=== PATIENT | male | born 1945 ===

== ENCOUNTER 2024-03-16 03:52 | Outpatient (RCR) | payer MEDICARE, OTHER, SELFPAY ==
[2024-03-16 10:06] LABS: HCT 36.5 % (40.0-50.0); HGB 12.1 g/dL (13.5-17.5); MCH 32.5 pg (27.0-33.0); MCHC 33.2 % (32.0-36.0); MCV 98 fL (80-95); MPV 9.2 fL (8.0-11.0); Platelet Count 115 10^3/uL (130-400); RBC 3.72 10^6/uL (4.36-5.78); RDW 14.2 % (11.8-14.1); RDW-SD 50.5 fL; WBC 4.58 10^3/uL (4.4-10.8)
[2024-03-16 10:28] LABS: ALT 22 U/L (16-63); AST 14 U/L (15-37); Albumin 3.7 g/dL (3.4-5.0); Alkaline Phosphatase 85 U/L (46-116); Anion Gap 4.3 mmol/L (3-11); BUN 18 mg/dL (7-18); Bilirubin, Total 0.5 mg/dL (0.2-1.0); CO2 29.7 mmol/L (21.0-32.0); CREATININE 1.2 mg/dL (0.70-1.30); Calcium 9.7 mg/dL (8.5-10.1); Chloride 107 mmol/L (98-107); Estimated GFR 62.67 (mL/min/1.73m2); Glucose 97 mg/dL (74-106); Potassium 4.9 mmol/L (3.5-5.1); Sodium 141 mmol/L (136-145); Total Protein 7.4 g/dL (6.4-8.2)
[2024-03-16 10:48] LABS: Absolute Lymphocyte Count 2.29 10^3/uL (1.2-3.4); Absolute Monocyte Count 0.09 10^3/uL (0.1-0.8); Absolute Neutrophil Count 2.15 10^3/uL (1.2-6.7); Atypical Lymphocytes % 22; Bands % 1
[2024-03-16 10:49] LABS: Metamyelocytes % 1
[2024-03-16 10:51] LABS: Diff Comment Manual Differential; RBC Morphology Normal
[2024-03-18 10:42] LABS: PSA, Ultrasensitive 0.94 ng/mL (<= 6.5)
[2024-03-19 15:15] LABS: Testosterone, Total <7.0 ng/dL (240-950)
== END 2024-03-30 23:59 | disposition home or self-care (01) ==
LOC: INF 03:52
PROVIDERS: Internal Medicine; Visit Provider Internal Medicine Medical Oncology
DX: C61 Malignant neoplasm of prostate (principal); C77.2 Secondary and unspecified malignant neoplasm of intra-abdominal lymph nodes
CPT/HCPCS: 36415; 80053; 84153; 84403; 85025

== ENCOUNTER 2024-04-05 13:19 | Outpatient (RCR) | payer MEDICARE, OTHER, SELFPAY ==
[2024-04-05 13:43] LABS: Abs Immature Grans 0.03 10^3/uL (0.0-0.06); Absolute Basophil Count 0.03 10^3/uL (0.0-0.2); Absolute Monocyte Count 0.49 10^3/uL (0.1-0.8); Absolute Neutrophil Count 2.78 10^3/uL (1.2-6.7); Basophils % 0.6 %; HCT 36.5 % (40.0-50.0); HGB 12.1 g/dL (13.5-17.5); Immature Grans % 0.6 %; Lymphocytes % 32.5 %; MCH 33.1 pg (27.0-33.0); MCHC 33.2 % (32.0-36.0); MCV 100 fL (80-95); MPV 8.9 fL (8.0-11.0); Monocytes % 9.9 %; Neutrophils % 56.4 %; Platelet Count 128 10^3/uL (130-400); RBC 3.66 10^6/uL (4.36-5.78); RDW 14.5 % (11.8-14.1); RDW-SD 52.7 fL; WBC 4.93 10^3/uL (4.4-10.8)
[2024-04-05 14:04] LABS: ALT 21 U/L (16-63); AST 15 U/L (15-37); Albumin 3.9 g/dL (3.4-5.0); Alkaline Phosphatase 77 U/L (46-116); Anion Gap 9.2 mmol/L (3-11); BUN 21 mg/dL (7-18); Bilirubin, Total 0.9 mg/dL (0.2-1.0); CO2 26.8 mmol/L (21.0-32.0); CREATININE 1.3 mg/dL (0.70-1.30); Calcium 9.6 mg/dL (8.5-10.1); Chloride 105 mmol/L (98-107); Estimated GFR 56.93 (mL/min/1.73m2); Glucose 100 mg/dL (74-106); Potassium 4.2 mmol/L (3.5-5.1); Sodium 141 mmol/L (136-145); Total Protein 7.4 g/dL (6.4-8.2)
[2024-04-07 11:13] LABS: PSA, Ultrasensitive 0.46 ng/mL (<= 6.5)
[2024-04-09 00:58] LABS: Testosterone, Total 8.3 ng/dL (240-950)
== END 2024-04-30 23:59 | disposition home or self-care (01) ==
LOC: INF 13:19
PROVIDERS: Visit Provider Internal Medicine Medical Oncology
DX: C61 Malignant neoplasm of prostate (principal); C77.2 Secondary and unspecified malignant neoplasm of intra-abdominal lymph nodes
CPT/HCPCS: 36415; 80053; 84153; 84403; 85025

== ENCOUNTER 2024-04-23 02:46 | Outpatient (CLI) | payer MEDICARE, OTHER, SELFPAY ==
[2024-04-23 09:11] LABS: HCT 36.1 % (40.0-50.0); HGB 11.8 g/dL (13.5-17.5); MCH 33.1 pg (27.0-33.0); MCHC 32.7 % (32.0-36.0); MCV 101 fL (80-95); MPV 8.8 fL (8.0-11.0); Platelet Count 108 10^3/uL (130-400); RBC 3.57 10^6/uL (4.36-5.78); RDW-SD 51.8 fL; WBC 3.31 10^3/uL (4.4-10.8)
[2024-04-23 09:30] LABS: Absolute Eosinophil Count 0.03 10^3/uL (0.0-0.7); Absolute Lymphocyte Count 1.59 10^3/uL (1.2-3.4); Absolute Monocyte Count 0.07 10^3/uL (0.1-0.8); Absolute Neutrophil Count 1.62 10^3/uL (1.2-6.7); Atypical Lymphocytes % 9 %; Bands % 1 %; Diff Comment Manual Differential; RBC Morphology Normal
[2024-04-23 09:34] LABS: ALT 23 U/L (16-63); AST 15 U/L (15-37); Albumin 3.8 g/dL (3.4-5.0); Alkaline Phosphatase 79 U/L (46-116); Anion Gap 9.2 mmol/L (3-11); BUN 22 mg/dL (7-18); Bilirubin, Total 0.7 mg/dL (0.2-1.0); CO2 26.8 mmol/L (21.0-32.0); CREATININE 1.4 mg/dL (0.70-1.30); Calcium 9.4 mg/dL (8.5-10.1); Chloride 105 mmol/L (98-107); Estimated GFR 52.09 (mL/min/1.73m2); Glucose 103 mg/dL (74-106); Potassium 4.2 mmol/L (3.5-5.1); Sodium 141 mmol/L (136-145); Total Protein 7.6 g/dL (6.4-8.2)
[2024-04-28 14:50] LABS: Testosterone, Total <7.0 ng/dL (240-950)
[2024-04-28 16:29] LABS: PSA, Ultrasensitive 0.19 ng/mL (<= 6.5)
== END 2024-04-23 02:47 | disposition home or self-care (01) ==
PROVIDERS: Visit Provider Internal Medicine
DX: C61 Malignant neoplasm of prostate (principal); C77.2 Secondary and unspecified malignant neoplasm of intra-abdominal lymph nodes
CPT/HCPCS: 36415; 80053; 84153; 84403; 85025

== ENCOUNTER 2024-05-17 09:17 | Outpatient (CLI) | payer MEDICARE, OTHER, SELFPAY ==
[2024-05-17 14:15] LABS: Abs Immature Grans 0.03 10^3/uL (0.0-0.06); HCT 30.5 % (40.0-50.0); HGB 9.8 g/dL (13.5-17.5); MCHC 32.1 % (32.0-36.0); MCV 100 fL (80-95); MPV 8.4 fL (8.0-11.0); Platelet Count 191 10^3/uL (130-400); RBC 3.06 10^6/uL (4.36-5.78); RDW 13.2 % (11.8-14.1); RDW-SD 48.5 fL; WBC 3.58 10^3/uL (4.4-10.8)
[2024-05-17 14:37] LABS: ALT 32 U/L (16-63); AST 22 U/L (15-37); Albumin 2.7 g/dL (3.4-5.0); Alkaline Phosphatase 131 U/L (46-116); Anion Gap 7.6 mmol/L (3-11); BUN 14 mg/dL (7-18); Bilirubin, Total 0.5 mg/dL (0.2-1.0); CO2 28.4 mmol/L (21.0-32.0); CREATININE 1.3 mg/dL (0.70-1.30); Chloride 102 mmol/L (98-107); Estimated GFR 56.93 (mL/min/1.73m2); Glucose 119 mg/dL (74-106); Sodium 138 mmol/L (136-145); Total Protein 6.8 g/dL (6.4-8.2)
[2024-05-17 14:40] LABS: Absolute Eosinophil Count 0.21 10^3/uL (0.0-0.7); Absolute Lymphocyte Count 0.72 10^3/uL (1.2-3.4); Absolute Monocyte Count 0.07 10^3/uL (0.1-0.8); Absolute Neutrophil Count 2.54 10^3/uL (1.2-6.7); Atypical Lymphocytes % 1 %; Bands % 1 %; Metamyelocytes % 1
[2024-05-17 14:41] LABS: Diff Comment Manual Differential; RBC Morphology Normal
--- OUTSIDE RECORDS SUMMARY | 2024-05-18 09:18 | XMS_ITS | Continuity of Care Document ---
Author Name Unknown Organization [facility] Address [address] [place] [address] Care Team Providers Care Mba Internship Name Role Phone Aurelia Venegas Primary Care Physician Encounter [facility] Date(s): 10/08/23 - 10/08/[address] [address] Discharge Disposition: Home or Self Care Attending Physician: Homer Rodríguez MD Admitting Physician: Homer Rodríguez MD Referring Physician: Homer Rodríguez MD Allergies, Adverse Reactions, Alerts No Known Medication Allergies Assessment and Plan Future Appointments Future Scheduled Tests Laboratory* PSA Diagnostic 08/02/24 * PSA Diagnostic 08/01/23 Immunizations Given and Recorded Vaccine Date Status Refusal Reason SARS-CoV-2 (COVID-19) mRNA-1273 vaccine 09/24/21 R ecorded SARS-CoV-2 (COVID-19) mRNA-1273 vaccine 02/14/21 R ecorded SARS-CoV-2 (COVID-19) mRNA-1273 vaccine 01/17/21 R ecorded influenza, unspecified formulation 08/29/21 Record ed influenza, unspecified formulation 08/23/20 Record ed influenza virus vaccine, live 09/06/19 Recorded pneumococcal 13-valent conjugate vaccine 10/16/17 Recorded pneumococcal 13-valent conjugate vaccine 04/20/15 Recorded influenza virus vaccine, inactivated 09/27/16 Larry rded influenza virus vaccine, inactivated 09/29/15 Larry rded influenza virus vaccine, inactivated 09/23/14 Larry rded influenza virus vaccine, inactivated 10/21/13 Larry rded influenza virus vaccine, inactivated 10/15/12 Larry rded influenza virus vaccine, inactivated 10/10/11 Larry rded influenza virus vaccine, inactivated 09/03/10 Larry rded influenza virus vaccine, inactivated 11/16/09 Larry rded influenza virus vaccine, inactivated 09/28/08 Larry rded influenza virus vaccine, inactivated 09/22/07 Larry rded influenza virus vaccine, inactivated 11/12/06 Larry rded pneumococcal 23-polyvalent vaccine 10/15/12 Record ed pneumococcal 23-polyvalent vaccine 12/01/99 Record ed zoster vaccine live 04/15/12 Recorded tetanus/diphth/pertuss (Tdap) adult/adol 04/03/11 Recorded Novel Lqxjfhscr-[id number], all formulation 12/29/09 Recorded Novel Vemrtlfuk-[id number], all formulation 1 12/29/09 Recorded tetanus-diphth toxoids (Td) adult/adol 12/01/04 Re corded Not Given Vaccine Date Status Refusal Reason Td(adult) unspecified formulation 2 05/10/22 Not G iven Patient Refuses 1Result Comment: Duplicated 2Result Comment: Patient Declined Last Modified on 09-13-2021 Medications Bactrim DS 800 mg-160 mg oral tablet 1 tab, Oral, every 12 hr, # 56 tab, 0 Refill(s), Pharmacy: [facility] #58, 167, cm, 04/23/22 13:16:00 EDT, Height/Length Dosing, 68, kg, 04/23/22 13:16:00 EDT, Weight Dosing Start Date: 08/10/23 Stop Date: 09/07/23 Status: Ordered clobetasol 0.05% topical cream 1 graeme, Topical, BID, apply sparingly to affected areas twice daily, # 15 g, 3 Refill(s), Pharmacy: [facility] #58, 167, cm, 04/23/22 13:16:00 EDT, Height/Length Dosing, 68, kg, 04/23/22 13:16:00 EDT, Weight Dosing Start Date: 11/18/22 Stop Date: 03/18/23 Status: Ordered ibuprofen 200 mg oral tablet mg = tab, Oral, PRN as needed for pain, 0 Refill(s) Start Date: 05/07/22 Status: Ordered latanoprost 0.005% ophthalmic solution 1 drops, Eye-Both, every night at bedtime Start Date: 04/25/22 Status: Ordered levoFLOXacin 500 mg oral tablet 500 mg = 1 tab, Oral, every 24 hr, # 14 tab, 0 Refill(s), Pharmacy: [facility] #58, 167, cm, 04/23/22 13:16:00 EDT, Height/Length Dosing, 68, kg, 04/23/22 13:16:00 EDT, Weight Dosing Start Date: 09/12/23 Stop Date: 09/26/23 Status: Ordered omeprazole 40 mg oral delayed release capsule 1 cap, Oral, Daily, # 90 cap, 3 Refill(s), Pharmacy: [facility] #58, 167, cm, 04/23/22 13:16:00 EDT, Height/Length Dosing, 68, kg, 04/23/22 13:16:00 EDT, Weight Dosing Start Date: 03/18/23 Status: Ordered tamsulosin 0.4 mg oral capsule 0.4 mg = 1 cap, Oral, Daily, after a meal, # 90 cap, 3 Refill(s), Pharmacy: [facility] #58, 167, cm, 04/23/22 13:16:00 EDT, Height/Length Dosing, 68, kg, 04/23/22 13:16:00 EDT, Weight Dosing Start Date: 04/24/22 Stop Date: 04/19/23 Status: Ordered tamsulosin 0.4 mg oral capsule 0.4 mg = 1 cap, Oral, Daily, # 90 cap, 3 Refill(s), Pharmacy: [facility] #58, 167, cm, 04/23/22 13:16:00 EDT, Height/Length Dosing, 68, kg, 04/23/22 13:16:00 EDT, Weight Dosing Start Date: 04/14/23 Stop Date: 04/08/24 Status: Ordered Problem List Condition Confirmation Course Effective Dates Status Health Status Informant Vences's esophagus Confirmed Active Cataract 1 Confirmed 04/20/20 Active Rotator cuff shoulder syndrome and allied disorders (Bilateral) Confirmed Active Gastroesophageal reflux disease Confirmed Active Glaucoma Confirmed Active Hyperlipidemia Confirmed Active Mild persistent asthma Confirmed Active Overweight Confirmed Active Pain of right shoulder joint Confirmed Active Prostate nodule Confirmed Active Psychophysiologic insomnia Confirmed Active 1right Procedures Procedure Date Related Diagnosis Body Site Status Colonoscopy 1 06/07/20 Completed Inguinal Hernia Repair right 11/30/02 Completed Right Knee Surgery 11/30/02 Comple meliza 1colon polyps x4 12/24/16 Results Laboratory List Name Date PSA Diagnostic 10/08/23 Most recent to oldest [Reference Range]: 1 PSA Total Diagnostic [0.00-4.00 ng/mL] 3 6.47 ng/mL 1 *HI* (10/08/23 8:35 AM) 1Interpretive Data: The testing method is an heterogeneous enzyme Immunoassay manufactured by [employer] and performed on the SafeAwake system. Values obtained with different assay methods or kits may be different and cannot be used interchangeably. Test results cannot be interpreted as absolute evidence for the presence or absence of malignant disease. Social History Social History Type Response Tobacco Former tobacco user Tobacco Use:. Quit over 50 years ago per day. Sex Male Patient Care team information Care Team Personnel Name: Aurelia Venegas MD Position: Physician Member Role: Informed Provider Address: Address: [place] [facility] [place], [place] [address] Care Team Related Persons Name: RILEY HAYES
--- OUTSIDE RECORDS SUMMARY | 2024-05-18 09:18 | XMS_ITS | Continuity of Care Document ---
Author Name Unknown Organization [facility] Address [address] [place] [address] Care Team Providers Care Commercial Title Examiner Name Role Phone Aurelia Venegas Primary Care Physician [phone] Encounter [facility] Date(s): 12/31/23 - 12/31/23 [facility] [address] [place] [address] Discharge Disposition: Home Allergies, Adverse Reactions, Alerts No Known Medication [...] Recorded tetanus/diphth/pertuss (Tdap) adult/adol 04/03/11 Recorded Novel Vuvynpmoo-U3N3-61, all formulation 12/29/09 Recorded Novel Wpfaweauu-J3U0-74, all formulation 1 12/29/09 Recorded tetanus-diphth toxoids (Td) adult/adol 12/01/04 Re corded Not Given Vaccine Date Status Refusal Reason Td(adult) unspecified formulation 2 05/10/22 Not G isrealen Patient Refuses 1Result Comment: Duplicated 2Result Comment: Patient Declined Last Modified on 09-13-2021 Medications bicalutamide 50 mg oral tablet 50 mg = 1 tab, Oral, every 24 hr, # 30 tab, 1 Refill(s), Pharmacy: [facility], 170, cm, 12/11/23 8:34:00 EST, Height, 66.85, kg, 12/23/23 10:14:00 EST, Weight Dosing Start Date: 12/25/23 Stop Date: 02/23/24 Status: Ordered clobetasol 0.05% topical cream 1 graeme, Topical, BID, apply sparingly to affected areas twice daily, # 15 g, 3 Refill(s), Pharmacy: [facility], 167, cm, 04/23/22 13:16:00 EDT, Height/Length Dosing, 68, kg, 04/23/22 13:16:00 EDT, Weight Dosing Start Date: 11/18/22 Stop Date: 03/18/23 Status: Ordered ibuprofen 200 mg oral tablet mg = tab, Oral, PRN as needed for pain, 0 Refill(s) Start Date: 05/07/22 Status: Ordered latanoprost 0.005% ophthalmic solution 1 drops, Eye-Both, every night at bedtime Start Date: 04/25/22 Status: Ordered omeprazole 40 mg oral delayed release capsule 1 cap, Oral, Daily, # 90 cap, 3 Refill(s), [facility]acy: [facility], 167, cm, 04/23/22 13:16:00 EDT, Height/Length Dosing, 68, kg, 04/23/22 13:16:00 EDT, Weight Dosing Start Date: 03/18/23 Status: Ordered tamsulosin 0.4 mg oral capsule 0.4 mg = 1 cap, Oral, Daily, after a meal, # 90 cap, 3 Refill(s), [facility]acy: [facility], 167, cm, 04/23/22 13:16:00 EDT, Height/Length Dosing, 68, kg, 04/23/22 13:16:00 EDT, Weight Dosing Start Date: 04/24/22 Stop Date: 04/19/23 Status: Ordered tamsulosin 0.4 mg oral capsule 0.4 mg = 1 cap, Oral, Daily, # 90 cap, 3 Refill(s), [facility]acy: [facility], 167, cm, 04/23/22 13:16:00 EDT, Height/Length [...] 11/30/02 Comple meliza 1colon polyps x4 12/24/16 Social History Social History Type Response Tobacco Former tobacco user Tobacco Use:. Quit over 50 years ago per day. Sex Male Patient Care team information Care Team Personnel Name: Aurelia Venegas MD Position: Physician Member Role: Informed Provider Address: Address: [address] [place] [address] [address] [place], [place] [address] Care Team Related Persons Name: RILEY HAYES Address: Home [address] [place] [address], [phone]
--- OUTSIDE RECORDS SUMMARY | 2024-05-18 09:18 | XMS_ITS | Continuity of Care Document ---
Author Name Unknown Organization [facility] Address [address] [place] [address] Care Team Providers Care Shoulder Boner Name Role Phone Aurelia Venegas Primary Care Physician [phone] Encounter [facility] Date(s): 12/08/23 - 12/08/[address] [address] Discharge Disposition: Home or Self Care Attending Physician: Efe Altamirano MD Admitting Physician: Efe Altamirano MD Referring Physician: Efe Altamirano MD Allergies, Adverse Reactions, Alerts No Known Medication Allergies Assessment and Plan Future Appointments Future Scheduled Tests Laboratory* PSA Diagnostic 08/02/24 * PSA Diagnostic 08/01/23 * PSA Diagnostic 11/03/23 * Creatinine 11/03/23 Immunizations Given and Recorded Vaccine Date Status [...] Larry rded influenza virus vaccine, inactivated 10/21/13 Lrary rded influenza virus vaccine, inactivated 10/15/12 Larry [...] Recorded tetanus/diphth/pertuss (Tdap) adult/adol 04/03/11 Recorded Novel Hilwjrppn-R3O5-25, all formulation 12/29/09 Recorded Novel Jejelczbn-[id number], all formulation 1 12/29/09 Recorded tetanus-diphth toxoids (Td) adult/adol 12/01/04 Re corded Not Given Vaccine Date Status Refusal Reason Td(adult) unspecified formulation 2 05/10/22 Not G iven Patient Refuses 1Result Comment: Duplicated 2Result Comment: Patient Declined Last Modified on 09-13-2021 Medications Bactrim DS 800 mg-160 mg oral tablet 1 tab, Oral, every 12 hr, # 56 tab, 0 Refill(s), Pharmacy: [facility] #58, 167, cm, 04/23/22 13:16:00 EDT, Height/Length Dosing, 68, kg, 04/23/22 13:16:00 EDT, Weight Dosing Start Date: 08/10/23 Stop Date: 09/07/23 Status: Ordered clobetasol 0.05% topical cream 1 graeme, Topical, BID, apply sparingly to affected areas twice daily, # 15 g, 3 Refill(s), Pharmacy: [facility] #58, 167, cm, 04/23/22 13:16:00 EDT, Height/Length [...] hr, # 14 tab, 0 Refill(s), Pharmacy: [facility] #58, 167, cm, 04/23/22 13:16:00 EDT, Height/Length Dosing, 68, kg, 04/23/22 13:16:00 EDT, Weight Dosing Start Date: 09/12/23 Stop Date: 09/26/23 Status: Ordered omeprazole 40 mg oral delayed release capsule 1 cap, Oral, Daily, # 90 cap, 3 Refill(s), Pharmacy: [facility] #58, 167, cm, 04/23/22 13:16:00 EDT, Height/Length Dosing, 68, kg, 04/23/22 13:16:00 EDT, Weight Dosing Start Date: 03/18/23 Status: Ordered ondansetron 4 mg oral tablet, disintegrating 4 mg = 1 tab, Oral, TID, PRN nausea/vomiting, X 5 days, # 15 tab, 0 Refill(s), 12/12/23 11:59:00 PM DIRECTOR OF RELIGIOUS ACTIVITIES, Pharmacy: [facility] #58, 170, cm, 12/07/23 21:21:00 EST, Height, 63.7, kg, 12/07/23 21:27:00 EST, Weight Dosing Start Date: 12/08/23 Stop Date: 12/13/23 Status: Ordered tamsulosin 0.4 mg oral capsule 0.4 mg = 1 cap, Oral, Daily, after a meal, # 90 cap, 3 Refill(s), Pharmacy: [facility] #58, 167, cm, 04/23/22 13:16:00 EDT, Height/Length Dosing, 68, kg, 04/23/22 13:16:00 EDT, Weight Dosing Start Date: 04/24/22 Stop Date: 04/19/23 Status: Ordered tamsulosin 0.4 mg oral capsule 0.4 mg = 1 cap, Oral, Daily, # 90 cap, 3 Refill(s), Pharmacy: [facility] #58, 167, cm, 04/23/22 13:16:00 EDT, Height/Length [...] Physician Member Role: Informed Provider Address: Address: [place] [address] [place] Care Team Related Persons Name: RILEY HAYES Address: Home [address] [place] [address], [phone]
--- OUTSIDE RECORDS SUMMARY | 2024-05-18 09:18 | XMS_ITS | Continuity of Care Document ---
Author Name Unknown Organization [facility] Address [address] [place] [address] Care Team Providers Care Reserve Officer Name Role Phone Aurelia Venegas Primary Care Physician Encounter [facility] Date(s): 12/24/23 - 12/24/[address] [address] Discharge Disposition: Home or Self Care Attending Physician: Aurelia Venegas MD Admitting Physician: Aurelia Venegas MD Referring Physician: Aurelia Venegas MD Allergies, Adverse Reactions, Alerts No Known Medication Allergies Assessment and Plan Future Appointments Diagnostic Tests Pending * Clostridium Difficile 12/24/23 Future Scheduled Tests Laboratory* PSA Diagnostic 08/02/24 [...] Recorded tetanus/diphth/pertuss (Tdap) adult/adol 04/03/11 Recorded Novel Yveosytjk-[id number], all formulation 12/29/09 Recorded Novel Uuocwwevf-F6J1-40, all formulation 1 12/29/09 Recorded tetanus-diphth toxoids (Td) adult/adol 12/01/04 Re corded Not Given Vaccine Date Status Refusal Reason Td(adult) unspecified formulation 2 05/10/22 Not G sixto Patient Refuses 1Result Comment: Duplicated 2Result Comment: Patient Declined Last Modified on 09-13-2021 Medications bicalutamide 50 mg oral tablet 50 mg = 1 tab, Oral, every 24 hr, # 30 tab, 1 Refill(s), Pharmacy: [facility] #58, 170, cm, 12/11/23 8:34:00 EST, Height, 66.85, kg, 12/23/23 10:14:00 EST, Weight Dosing Start Date: 12/25/23 Stop Date: 02/23/24 Status: Ordered clobetasol 0.05% topical cream 1 graeme, Topical, BID, apply sparingly to affected areas twice daily, # 15 g, 3 Refill(s), Pharmacy: [facility] #58, 167, cm, 04/23/22 13:16:00 EDT, Height/Length [...] Daily, # 90 cap, 3 Refill(s), Pharmacy: [facility] #58, 167, cm, 04/23/22 13:16:00 EDT, Height/Length Dosing, 68, kg, 04/23/22 13:16:00 EDT, Weight Dosing Start Date: 03/18/23 Status: Ordered tamsulosin 0.4 mg oral capsule 0.4 mg = 1 cap, Oral, Daily, after a meal, # 90 cap, 3 Refill(s), Pharmacy: [facility] #58, 167, cm, 04/23/22 13:16:00 EDT, Height/Length Dosing, 68, kg, 04/23/22 13:16:00 EDT, Weight Dosing Start Date: 04/24/22 Stop Date: 04/19/23 Status: Ordered tamsulosin 0.4 mg oral capsule 0.4 mg = 1 cap, Oral, Daily, # 90 cap, 3 Refill(s), Pharmacy: [facility] #[facility], 167, cm, 04/23/22 13:16:00 EDT, Height/Length [...] x4 12/24/16 Results Laboratory List Name Date Fecal Bacterial Pathogens by PCR [facility] 12/02 03/24 Occult Blood Diagnostic, Feces 12/24/23 Most recent to oldest [Reference Range]: 1 Occult Bld Stl I Negative (12/24/23 11:25 AM) Occult Bld Stl ll Negative (12/24/23 11:25 AM) Occult Bld Stl lll Negative (12/24/23 11:25 AM) Salmonella PCR [facility] [Negative] Negative *NA* (12/24/23 11:25 AM) Shigella/Enteroinvasive E. coli [facility] [Neg ative] Negative *NA* (12/24/23 11:25 AM) HN LAB CAMPYLOBACTER PCR [facility] [Negative] Negative *NA* (12/24/23 11:25 AM) Shiga Toxin PCR [facility] [Negative] Negative 1 *NA* (12/24/23 11:25 AM) 1Result Comment: Test [place] [address] Social History Social History Type Response Tobacco Former tobacco user Tobacco Use:. Quit over 50 years ago per day. Sex Male Patient Care team information Care Team Personnel Name: Aurelia Venegas MD Position: Physician Member Role: Informed Provider Address: Address: [place] [address]- Care Team Related Persons Name: RILEY HAYES Address: Home [address] [place] [address], [phone]
--- OUTSIDE RECORDS SUMMARY | 2024-05-18 09:18 | XMS_ITS | Continuity of Care Document ---
Author Name Unknown Organization [facility] Address [address] [place] [address] Care Team Providers Care Roll Mechanic Name Role Phone Aurelia Venegas Primary Care Physician [phone] Encounter [facility] Date(s): 01/13/24 - 01/13/24 [facility] [address] [place] [address] Discharge Disposition: Home Allergies, Adverse Reactions, Alerts [...] Recorded tetanus/diphth/pertuss (Tdap) adult/adol 04/03/11 Recorded Novel Sgjyhpkfe-[id number], all formulation 12/29/09 Recorded Novel Vfqdlrrnh-D1O3-47, all formulation 1 12/29/09 Recorded tetanus-diphth toxoids (Td) adult/adol 12/01/04 Re corded Not Given Vaccine Date Status Refusal Reason Td(adult) unspecified formulation 2 05/10/22 Not G iven Patient Refuses 1Result Comment: Duplicated 2Result Comment: Patient Declined Last Modified on 09-13-2021 Medications bicalutamide 50 mg oral tablet 50 mg = 1 tab, Oral, every 24 hr, # 30 tab, 1 Refill(s), Pharmacy: [facility] #58, 170, cm, 12/11/23 8:34:00 EST, Height, 66.85, kg, 12/23/23 10:14:00 EST, Weight Dosing Start Date: 12/25/23 Stop Date: 02/23/24 Status: Ordered clobetasol 0.05% topical cream 1 graeme, Topical, BID, apply sparingly to affected areas twice daily, # 15 g, 3 Refill(s), Pharmacy: [facility] #58, 167, cm, 04/23/22 13:16:00 EDT, Height/Length [...] Daily, # 90 cap, 3 Refill(s), Pharmacy: [facility] #58, 167, cm, 04/23/22 13:16:00 EDT, Height/Length Dosing, 68, kg, 04/23/22 13:16:00 EDT, Weight Dosing Start Date: 03/18/23 Status: Ordered tamsulosin 0.4 mg oral capsule 0.4 mg = 1 cap, Oral, Daily, after a meal, # 90 cap, 3 Refill(s), Pharmacy: [facility] #58, 167, cm, 04/23/22 13:16:00 EDT, Height/Length Dosing, 68, kg, 04/23/22 13:16:00 EDT, Weight Dosing Start Date: 04/24/22 Stop Date: 04/19/23 Status: Ordered tamsulosin 0.4 mg oral capsule 0.4 mg = 1 cap, Oral, Daily, # 90 cap, 3 Refill(s), Pharmacy: [facility] #58, 167, cm, 04/23/22 13:16:00 EDT, Height/Length [...] Physician Member Role: Informed Provider Address: Address: [address] [place] [address] [place], [place] [address] Care Team Related Persons Name: RILEY HAYES Address: Home [address] [place] [address], [phone]
--- OUTSIDE RECORDS SUMMARY | 2024-05-18 09:19 | XMS_ITS | Continuity of Care Document ---
Author Name Unknown Organization [facility] Address [address] [place] [address] Care Team Providers Care Medical Office Technology Instructor Name Role Phone Aurelia Venegas Primary Care Physician Encounter [facility] Date(s): 03/18/23 - 03/18/[address] [address] Discharge Disposition: Home or Self Care Attending Physician: Aurelia Venegas MD Admitting Physician: Aurelia Venegas MD Referring Physician: Aurelia Venegas MD Allergies, Adverse Reactions, Alerts No Known Medication Allergies Assessment and Plan Future Appointments Future Scheduled Tests Laboratory* PSA Diagnostic 08/01/23 Immunizations Given and Recorded [...] 10/15/12 Larry rded influenza virus vaccine, inactivated 11/10/11 Larry rded influenza virus vaccine, inactivated 09/03/10 Larry rded influenza virus vaccine, inactivated 11/16/09 Larry rded influenza virus vaccine, inactivated 09/28/08 Larry rded influenza virus vaccine, inactivated 09/22/07 Larry rded influenza virus vaccine, inactivated 11/12/06 Larry rded pneumococcal 23-polyvalent vaccine 10/15/12 Record ed pneumococcal 23-polyvalent vaccine 12/01/99 Record ed zoster vaccine live 04/15/12 Recorded tetanus/diphth/pertuss (Tdap) adult/adol 04/03/11 Recorded Novel Smyxcuqfm-B2V5-80, all formulation 12/29/09 Recorded Novel Jxhxpkxnx-P4Z5-49, all formulation 1 12/29/09 Recorded tetanus-diphth toxoids (Td) adult/adol 12/01/04 Re corded Not Given Vaccine Date Status Refusal Reason Td(adult) unspecified formulation 2 05/10/22 Not G iven Patient Refuses 1Result Comment: Duplicated 2Result Comment: Patient Declined Last Modified on 09-13-2021 Medications clobetasol 0.05% topical cream 1 graeme, Topical, BID, apply sparingly to affected areas twice daily, # 15 g, 3 Refill(s), Pharmacy: [facility] #58, 167, cm, 04/23/22 13:16:00 EDT, Height/Length [...] Daily, # 90 cap, 3 Refill(s), Pharmacy: [facility] #58, 167, cm, 04/23/22 13:16:00 EDT, Height/Length Dosing, 68, kg, 04/23/22 13:16:00 EDT, Weight Dosing Start Date: 03/18/23 Status: Ordered tamsulosin 0.4 mg oral capsule 0.4 mg = 1 cap, Oral, Daily, after a meal, # 90 cap, 3 Refill(s), Pharmacy: [facility] #58, 167, cm, 04/23/22 13:16:00 EDT, Height/Length Dosing, 68, kg, 04/23/22 13:16:00 EDT, Weight Dosing Start Date: 04/24/22 Stop Date: 04/19/23 Status: Ordered Problem List Condition Confirmation Course [...] x4 12/24/16 Results Laboratory List Name Date .Manual Differential (NCTY) 03/18/23 CBC w/ Diff 03/18/23 Comprehensive Metabolic Panel (CMP) 03/18 Most recent to oldest [Reference Range]: 1 WBC [5.0-10.0 x10^3/mcL] 5.1 x10^3/mcL (03/18/23 10:19 AM) RBC [4.6-6.0 x10^6/mcL] 4.4 x10^6/mcL *LOW* (03/18/23 10:19 AM) Segs Man [40-75 %] 43 % (03/18/23 10:19 AM) Lymph Man [20-50 %] 50 % (03/18/23 10:19 AM) [place] Man 3 % *NA* (03/18/23 10:19 AM) Eos Man 2 % *NA* (03/18/23 10:19 AM) BUN [7-18 mg/dL] 19 mg/dL *HI* (03/18/23 10:19 AM) Glucose Level [74-106 mg/dL] 101 mg/dL (03/18/23 10:19 AM) [place] Man 1 % *NA* (03/18/23 10:19 AM) Potassium Level [3.5-5.1 mmol/L] 4.4 mmo l/L (03/18/23 10: AM) MCV [80.0-96.0] 98.2 *HI* (03/18/23 AM) RBC Morph Normal (03/18/23 AM) AST [15-37 unit/L] 16 unit/L (03/18/23 AM) ALT [16-63 unit/L] 21 unit/L (03/18/23 AM) MCHC [31.0-35.0 g/dL] 33.6 g/dL (03/18/23 AM) Sodium Level [136-145 mmol/L] 140 mmol/L (03/18/23: AM) Hct [41.0-51.0 %] 43.4 % (03/18/23 AM) Calcium Level [8.5-10.1 mg/dL] 9.8 mg/dL (03/18/23 AM) Albumin Level [3.4-5.0 g/dL] 3.8 g/dL (03/18/23 AM) Protein Total [6.4-8.2 g/dL] 7.5 g/dL (03/18/23: AM) MCH [26.0-32.0 pg] 33.0 pg *HI* (03/18/23 AM) Bilirubin Total [0.2-1.0 mg/dL] 0.7 mg/d L (03/18/23 AM) Hgb [14.0-18.0 g/dL] 14.6 g/dL (03/18/23: AM) Alk Phos [46-146 unit/L] 71 unit/L (03/18/23: AM) Band Man [0-5 %] 1 % (03/18/23 AM) Platelets [130-450 x10^3/mcL] 112 x10^3/ mcL *LOW* (03/18/23 AM) CO2 [21-32 mmol/L] 29 mmol/L (03/18/23 10: AM) eGFR Non-AA [>=60] 59 *LOW* (4/18/23 10:19 AM) eGFR AA [>=60] 59 *LOW* (03/18/23 10:19 AM) Chloride Level [98-107 mmol/L] 103 mmol/ L (03/18/23 10:19 AM) RDW-CV [11.5-17.0 %] 13.6 % (03/18/23 10:19 AM) Abs Neut Man 2.2 x10^3/mcL *NA* (03/18/23 10:19 AM) Creatinine Level [0.70-1.30 mg/dL] 1.27 mg/dL (03/18/23 10:19 AM) Baso Man [0-1 %] 0 % (03/18/23 10:19 AM) Social History Social History Type Response Tobacco Former tobacco user Tobacco Use:. Quit over 50 years ago per day. Sex Male Patient Care team information Care Team Personnel Name: Aurelia Venegas MD Position: Physician Member Role: Primary Care Physician Address: Address: [place] [address]- [place] Care Team Related Persons Name: RILEY HAYES
--- OUTSIDE RECORDS SUMMARY | 2024-05-18 09:19 | XMS_ITS | Patient Health Record ---
Author Name Unknown Organization [facility] Address [address] [phone] Support Name Relationship Address Phone DEJA HAYES Guarantor Unknown [phone] ALLERGIES No Known Allergies REASON FOR REFERRAL No Information MEDICATIONS Medication SIG (Take, Route, Frequency, Duration) Notes Start Date End Date Status Escitalopram Oxalate 10 MG 1 tablet Oral ly Once a day Active Warfarin Sodium 5 MG 1 tablet Orally Onc e a day for 30 day(s) Active Erin-Ledy - TAKE ONE TABLET BY M OUTH EVERY DAY for 90 Active Flomax 0.4 MG 1 capsule Orally Onc e a day for 30 day(s) Active amLODIPine Besylate 10 MG 1 tablet Orall y Once a day for 30 day(s) Active Acidophilus - as directed Orally QD Active Lantus SoloStar 100 UNIT/ML 15 UNITS Sub cutaneous BID Active Acetaminophen 500 MG 1 capsule as needed Orally every 6 hrs Active QUEtiapine Fumarate 25 MG 1/2 tablet at bedtime Orally Once a day Active Pantoprazole Sodium 40 MG 1 tablet Orall y Once a day for 30 day(s) Active HumaLOG KwikPen 100 UNIT/ML 8 UNITS Subcutaneous TID Active Gabapentin 100 MG 1 capsule Orally BID Active hydrALAZINE HCl 100 MG 1 tablet with mariah d Orally Three times a day for 90 days Active lamoTRIgine 100 MG 1 tablet Orally BID Active Ipratropium-Albuterol 20-100 MCG/ACT 1 puff as needed Inhalation every 6 hrs Active Bumetanide 2 MG as directed Orally e very 24 hrs Active ALPRAZolam 1 MG 1 tablet Orally Twic e a day Active Cyclobenzaprine HCl 5 MG 1 tablet at bed time as needed Orally Once a day for 30 day(s) Active Cholecalciferol 50 MCG (2000 UT) 1 capsule Orally Once a day for 30 day(s) Active Cetirizine HCl 10 MG 1 tablet Orally Onc e a day for 30 day(s) Active Potassium Chloride ER 10 MEQ TAKE ONE TA BLET BY MOUTH EVERY DAY WITH FOOD for 90 Active PROBLEMS Problem Type ICD Code Onset Dates Problem Status W/U Status Risk SNOMED Code Notes Problem Essential (primary) hypertension (I10) Active confirmed Essential hypertension (31201379) Problem 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) Active confirmed Anemia in chron ic kidney disease (208568136) Problem Iron deficiency anemia, unspecified (D50.9) Active confirmed Iron deficiency anemia (03986356) Problem Type 2 diabetes mellitus without complications (E11.9) Active confirmed Type I I diabetes mellitus without complication (698356675) Problem Hyperlipidemia, unspecified (E78.5) Active confirmed Hyperlip idemia (20379635) Problem Non-ST elevation (NSTEMI) myocardial infarction (I21.4) Active confirmed Acute non -ST segment elevation myocardial infarction (088602324) Problem Secondary hyperparathyroidism of renal origin (N25.81) Active confirmed Secondary hyperparathyroidism of renal origin (36009608) Problem Chronic kidney disease, stage 3 unspecified (N18.30) Active confirmed Chronic kidney disease stage 3 (disorder) (280246296) PLAN OF TREATMENT No Information Insurance Providers Payer Name Payer Address Payer Phone Subscriber Number Group Number Insured Name Patient Relationship to Insured Coverage Start Date Coverage End Date Abhijit Valentin [phone] FÁTIMA Juarez [id number] DEJA HAYES Self - patient is the insured MEDICAL (GENERAL) HISTORY Medical History History ICD Code Anemia, unspecified D64.9 Iron deficiency anemia, unspecified D50. 9 Secondary hyperparathyroidism of renal o rigin N25.81 Hyperlipidemia, unspecified E78.5 Non-ST elevation (NSTEMI) myocardial inf arction I21.4 Essential (primary) hypertension I10 Type 2 diabetes mellitus without complic ations E11.9 Chronic kidney disease, unspecified N18. 9 Surgical History Surgery Date(Month/Year)
--- OUTSIDE RECORDS SUMMARY | 2024-05-18 09:19 | XMS_ITS | Continuity of Care Document ---
Author Name Unknown Organization [facility] Address [address] [place] [address] Care Team Providers Care Sour Bleaching Pleater Name Role Phone Aurelia Venegas Primary Care Physician Encounter [facility] Date(s): 02/03/24 - 02/03/[address] [address] Discharge Disposition: Home or Self Care Attending Physician: Mick Brenner MD Admitting Physician: Mick Brenner MD Referring Physician: Mick Brenner MD Allergies, Adverse Reactions, Alerts No Known [...] Recorded tetanus/diphth/pertuss (Tdap) adult/adol 04/03/11 Recorded Novel Tgbpjeypj-N3A4-82, all formulation 12/29/09 Recorded Novel Hkzsmhtur-I0J7-96, all formulation 1 12/29/09 Recorded tetanus-diphth toxoids (Td) adult/adol 12/01/04 Re corded Not Given Vaccine Date Status Refusal Reason Td(adult) unspecified formulation 2 05/10/22 Not G iven Patient Refuses 1Result Comment: Duplicated 2Result Comment: Patient Declined Last Modified on 09-13-2021 Medications bicalutamide 50 mg oral tablet 50 mg = 1 tab, Oral, every 24 hr, # 30 tab, 1 Refill(s), Pharmacy: [facility] #58, 170, cm, 12/11/23 8:34:00 EST, Height, 66.85, kg, 12/23/23 10:14:00 EST, Weight Dosing Start Date: 12/25/23 Stop Date: 02/23/24 Status: Ordered clobetasol 0.05% topical cream 1 graeme, Topical, BID, apply sparingly to affected areas twice daily, # 15 g, 3 Refill(s), Pharmacy: [facility] #58, 167, cm, 04/23/22 13:16:00 EDT, Height/Length [...] Daily, # 90 cap, 3 Refill(s), Pharmacy: [facility] #58, 167, cm, 04/23/22 13:16:00 EDT, Height/Length Dosing, 68, kg, 04/23/22 13:16:00 EDT, Weight Dosing Start Date: 03/18/23 Status: Ordered tamsulosin 0.4 mg oral capsule 0.4 mg = 1 cap, Oral, Daily, after a meal, # 90 cap, 3 Refill(s), Pharmacy: [facility] #58, 167, cm, 04/23/22 13:16:00 EDT, Height/Length Dosing, 68, kg, 04/23/22 13:16:00 EDT, Weight Dosing Start Date: 04/24/22 Stop Date: 04/19/23 Status: Ordered tamsulosin 0.4 mg oral capsule 0.4 mg = 1 cap, Oral, Daily, # 90 cap, 3 Refill(s), Pharmacy: [facility] #58, 167, cm, 04/23/22 13:16:00 EDT, Height/Length [...] Active Glaucoma Confirmed Active Hyperlipidemia Confirmed Active 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 Quit over 50 years ago per day. Sex Male Patient Care team information Care Team Personnel Name: Aurelia Venegas MD Position: Physician Member Role: Informed Provider Address: Address: [address] [place] [address] [address] [place], [place] [address] Care Team Related Persons Name: RILEY HAYES Address: Home [address] [place] [address], [phone]
--- OUTSIDE RECORDS SUMMARY | 2024-05-18 09:19 | XMS_ITS | Continuity of Care Document ---
Author Name Unknown Organization [facility] Address [address] [place] [address] Care Team Providers Care Warp Knitter Helper Name Role Phone SampsonAurelia Primary Care Physician Encounter [facility] Date(s): 11/17/23 - 01/09/24 [facility] [address] [place] [address] Discharge Disposition: Home or Self Care Attending Physician: Leif Arita DO Admitting Physician: Leif Arita DO Referring Physician: Leif Arita DO Allergies, Adverse Reactions, Alerts No Known Medication Allergies Assessment and Plan Extracted from: Title:Clinical Document Author:Efe Altamirano Ra, MD Date:12/09/23 I spoke with the patient thi s morning. He is feeling markedly better. He had an ultrasound yesterday of his gallbladder, he tried calling his primary care doctor to get the results but could not get through. Ultrasound reports signs of cholecystitis. Patient is feeling markedly better. Nevertheless I did speak with [facility] surgical and they will get him in with Dr. Arita tomorrow at 11. I did also speak with Dr. Rodríguez who will be seeing him for prostate issues this week. The patient to return to the ER immediately if he develops a fever and worsening pain. Future Appointments Future Scheduled Tests Laboratory* PSA Diagnostic 08/02/24 * PSA Diagnostic 08/01/23 Functional Status 12/02/23 Living Situation Home independently ADLs Independent Recent Travel History No recent travel Immunizations Given and Recorded Vaccine Date Status [...] Recorded tetanus/diphth/pertuss (Tdap) adult/adol 04/03/11 Recorded Novel Pooanwhyw-R8N7-76, all formulation 12/29/09 Recorded Novel Fjwmligul-T5U1-34, all formulation 1 12/29/09 Recorded tetanus-diphth toxoids (Td) adult/adol 12/01/04 Re corded Not Given Vaccine Date Status Refusal Reason Td(adult) unspecified formulation 2 05/10/22 Not G iven Patient Refuses 1Result Comment: Duplicated 2Result Comment: Patient Declined Last Modified on 09-13-2021 Medications bicalutamide 50 mg oral tablet 50 mg = 1 tab, Oral, every 24 hr, # 30 tab, 1 Refill(s), Pharmacy: [facility] #58, 170, cm, 12/11/23 8:34:00 EST, Height, 66.85, kg, 12/23/23 10:14:00 EST, Weight Dosing Start Date: 12/25/23 Stop Date: 02/23/24 Status: Ordered clobetasol 0.05% topical cream 1 graeme, Topical, BID, apply sparingly to affected areas twice daily, # 15 g, 3 Refill(s), Pharmacy: [facility] #58, 167, cm, 04/23/22 13:16:00 EDT, Height/Length [...] Daily, # 90 cap, 3 Refill(s), Pharmacy: [facility] #58, 167, cm, 04/23/22 13:16:00 EDT, Height/Length Dosing, 68, kg, 04/23/22 13:16:00 EDT, Weight Dosing Start Date: 03/18/23 Status: Ordered tamsulosin 0.4 mg oral capsule 0.4 mg = 1 cap, Oral, Daily, after a meal, # 90 cap, 3 Refill(s), Pharmacy: [facility] #58, 167, cm, 04/23/22 13:16:00 EDT, Height/Length Dosing, 68, kg, 04/23/22 13:16:00 EDT, Weight Dosing Start Date: 04/24/22 Stop Date: 04/19/23 Status: Ordered tamsulosin 0.4 mg oral capsule 0.4 mg = 1 cap, Oral, Daily, # 90 cap, 3 Refill(s), Pharmacy: [facility] #58, 167, cm, 04/23/22 13:16:00 EDT, Height/Length [...] 50 years ago per day. Sex Male Physician Emergency department Note * Efe Altamirano MD: PERFORM Event Display: ED Note Physician Authored Date: [id number] I spoke with the patient this morning. He is feeling markedly better. He had an ultrasound yesterday of his gallbladder, he tried calling his primary care doctor to get the results but could not get through. Ultrasound reports signs of cholecystitis. Patient is feeling markedly better. NeverthelessI did speak with [facility] surgical and they will get him in with Dr. Arita tomorrow at 11. I did also speak with Dr. Rodríguez who will be seeing him for prostate issues this week. The patient to return to the ER immediately if he develops a fever and worsening pain. Electronically Signed on 12/09/23 11:08 AM Efe Altamirano MD Patient Care team information Care Team Personnel Name: Aurelia Venegas MD Position: Physician Member Role: Informed Provider Address: Address: [address] [place] [address] [place] [address]- Care Team Related Persons Name: RILEY HAYES Address: Home [address] [place] [address], [phone]
--- OUTSIDE RECORDS SUMMARY | 2024-05-18 09:19 | XMS_ITS | Continuity of Care Document ---
Author Name Unknown Organization [facility] Address [address] [place] [address] Care Team Providers Care Machine Etcher Name Role Phone Aurelia Venegas Primary Care Physician Encounter [facility] Date(s): 12/23/23 - 12/23/[address] [address] Discharge Disposition: Home or Self Care Attending [...] Recorded tetanus/diphth/pertuss (Tdap) adult/adol 04/03/11 Recorded Novel Fmnqayfuj-M7P5-97, all formulation 12/29/09 Recorded Novel Iurhkabcf-B2N2-74, all formulation 1 12/29/09 Recorded tetanus-diphth toxoids (Td) adult/adol 12/01/04 Re corded Not Given Vaccine Date Status Refusal Reason Td(adult) unspecified formulation 2 05/10/22 Not G iven Patient Refuses 1Result Comment: Duplicated 2Result Comment: Patient Declined Last Modified on 09-13-2021 Medications clobetasol 0.05% topical cream 1 graeme, Topical, BID, apply sparingly to affected areas twice daily, # 15 g, 3 Refill(s), Pharmacy: [facility] #58, 167, cm, 04/23/22 13:16:00 EDT, Height/Length [...] Daily, # 90 cap, 3 Refill(s), Pharmacy: [facility] #58, 167, cm, 04/23/22 13:16:00 EDT, Height/Length Dosing, 68, kg, 04/23/22 13:16:00 EDT, Weight Dosing Start Date: 03/18/23 Status: Ordered tamsulosin 0.4 mg oral capsule 0.4 mg = 1 cap, Oral, Daily, after a meal, # 90 cap, 3 Refill(s), Pharmacy: [facility] #58, 167, cm, 04/23/22 13:16:00 EDT, Height/Length Dosing, 68, kg, 04/23/22 13:16:00 EDT, Weight Dosing Start Date: 04/24/22 Stop Date: 04/19/23 Status: Ordered tamsulosin 0.4 mg oral capsule 0.4 mg = 1 cap, Oral, Daily, # 90 cap, 3 Refill(s), Pharmacy: [facility] #58, 167, cm, 04/23/22 13:16:00 EDT, Height/Length [...] Laboratory List Name Date .Manual Differential ([facility]) 12/23/23 Amylase Level 12/23/23 CBC w/ Diff 12/23/23 Comprehensive Metabolic Panel (CMP) 12/23 GGT 12/23/23 Lipase Level 12/23/23 PSA Diagnostic 12/23/23 Most recent to oldest [Reference Range]: 1 WBC [5.0-10.0 x10^3/mcL] 5.1 x10^3/mcL (12/23/23 10:57 AM) RBC [4.6-6.0 x10^6/mcL] 4.2 x10^6/mcL *LOW* (12/23/23 10:57 AM) Segs Man [40-75 %] 58 % (12/23/23 10:57 AM) Lymph Man [20-50 %] 28 % (12/23/23 10:57 AM) Mcduffie Man [2-15 %] 2 % (12/23/23 10:57 AM) Eos Man [1-6 %] 1 % (12/23/23 10:57 AM) BUN [7-18 mg/dL] 17 mg/dL (12/23/23 10:57 AM) Glucose Level [74-106 mg/dL] 101 mg/dL (12/23/23 10:57 AM) Lymph, Atyp Man 9 % *NA* (12/23/23 10:57 AM) Potassium Level [3.5-5.1 mmol/L] 3.7 mmo l/L (12/23/23 10:57 AM) MCV [80.0-96.0 fL] 96.9 fL *HI* (12/23/23 10:57 AM) RBC Morph Normal (12/23/23 10:57 AM) AST [15-37 unit/L] 14 unit/L *LOW* (12/23/23 10:57 AM) Amylase Level [25-115 unit/L] 47 unit/L (12/23/23 10:57 AM) ALT [16-63 unit/L] 30 unit/L (12/23/23 10:57 AM) MCHC [31.0-35.0 g/dL] 33.6 g/dL (12/23/23 10:57 AM) Sodium Level [136-145 mmol/L] 140 mmol/L (12/23/23 10:57 AM) Hct [41.0-51.0 %] 40.5 % *LOW* (12/23/23 10:57 AM) Lipase Level [16-77 unit/L] 43 unit/L 1 (12/23/23 10:57 AM) Calcium Level [8.5-10.1 mg/dL] 9.5 mg/dL (12/23/23 10:57 AM) Albumin Level [3.4-5.0 g/dL] 3.2 g/dL *LOW* (12/23/23 10:57 AM) Protein Total [6.4-8.2 g/dL] 7.7 g/dL (12/23/23 10:57 AM) MCH [26.0-32.0 pg] 32.5 pg *HI* (12/23/23 10:57 AM) Bilirubin Total [0.2-1.0 mg/dL] 0.8 mg/d L (12/23/23 10:57 AM) Hgb [14.0-18.0 g/dL] 13.6 g/dL *LOW* (12/23/23 10:57 AM) Alk Phos [46-146 unit/L] 122 unit/L (12/23/23 10:57 AM) Band Man [0-5 %] 0 % (12/23/23 10:57 AM) Platelets [130-450 x10^3/mcL] 241 x10^3/ mcL (12/23/23 10:57 AM) CO2 [21-32 mmol/L] 28 mmol/L (12/23/23 10:57 AM) PSA Total Diagnostic [0.00-4.00 ng/mL] 3 2.15 ng/mL 2 *HI* (12/23/23 10:57 AM) GGT [15-85 unit/L] 52 unit/L (12/23/23 10:57 AM) eGFR Non-AA [>=60] 59 *LOW* (12/23/23 10:57 AM) eGFR AA [>=60] 59 *LOW* (12/23/23 10:57 AM) Chloride Level [98-107 mmol/L] 102 mmol/ L (12/23/23 10:57 AM) RDW-CV [11.5-14.5 %] 12.5 % (12/23/23 10:57 AM) Slide Review Man Diff (12/23/23 10:57 AM) Abs Neut Man 3.0 x10^3/mcL *NA* (12/23/23 10:57 AM) Immature Cells 2 *NA* (12/23/23 10:57 AM) Creatinine Level [0.70-1.30 mg/dL] 1.27 mg/dL (12/23/23 10:57 AM) Baso Man [0-1 %] 0 % (12/23/23 10:57 AM) 1Interpretive Data: Effective 09/19/22, [facility] has switched to a revised Lipase test.Note new ReferenceRange. 2Interpretive Data: The testing method is an heterogeneous enzyme Immunoassay manufactured by [employer] and performed on the [employer] system. Values obtained with different assay methods [...] Physician Member Role: Informed Provider Address: Address: [place] [address]- [place] Care Team Related Persons Name: RILEY HAYES Address: Home [address] [place] [address], [phone]
--- OUTSIDE RECORDS SUMMARY | 2024-05-18 09:19 | XMS_ITS | Continuity of Care Document ---
Author Name Unknown Organization [facility] Address [address] [place] [address] Care Team Providers Care Orange Grower Name Role Phone Aurelia Venegas Primary Care Physician [phone] Encounter [facility] Date(s): 01/21/24 - 01/21/[address] [address] Discharge Disposition: Home or Self Care Attending [...] Recorded tetanus/diphth/pertuss (Tdap) adult/adol 04/03/11 Recorded Novel Qqrpdrlra-N5E6-27, all formulation 12/29/09 Recorded Novel Odfxnxrmh-R7L5-79, all formulation 1 12/29/09 Recorded tetanus-diphth toxoids (Td) adult/adol 12/01/04 Re corded Not Given Vaccine Date Status Refusal Reason Td(adult) unspecified formulation 2 05/10/22 Not G iven Patient Refuses 1Result Comment: Duplicated 2Result Comment: Patient Declined Last Modified on 09-13-2021 Medications bicalutamide 50 mg oral tablet 50 mg = 1 tab, Oral, every 24 hr, # 30 tab, 1 Refill(s), Pharmacy: [facility] #58, 170, cm, 12/11/23 8:34:00 EST, Height, 66.85, kg, 12/23/23 10:14:00 EST, Weight Dosing Start Date: 12/25/23 Stop Date: 02/23/24 Status: Ordered clobetasol 0.05% topical cream 1 graeme, Topical, BID, apply sparingly to affected areas twice daily, # 15 g, 3 Refill(s), Pharmacy: [facility] #58, 167, cm, 04/23/22 13:16:00 EDT, Height/Length [...] Daily, # 90 cap, 3 Refill(s), Pharmacy: [facility] #58, 167, cm, 04/23/22 13:16:00 EDT, Height/Length Dosing, 68, kg, 04/23/22 13:16:00 EDT, Weight Dosing Start Date: 03/18/23 Status: Ordered tamsulosin 0.4 mg oral capsule 0.4 mg = 1 cap, Oral, Daily, after a meal, # 90 cap, 3 Refill(s), Pharmacy: [facility] #58, 167, cm, 04/23/22 13:16:00 EDT, Height/Length Dosing, 68, kg, 04/23/22 13:16:00 EDT, Weight Dosing Start Date: 04/24/22 Stop Date: 04/19/23 Status: Ordered tamsulosin 0.4 mg oral capsule 0.4 mg = 1 cap, Oral, Daily, # 90 cap, 3 Refill(s), Pharmacy: [facility] #58, 167, cm, 04/23/22 13:16:00 EDT, Height/Length [...] Comple meliza 1colon polyps x4 12/24/16 Results Orders for Microbiology Reports Name Date Urine Culture 01/21/24 Microbiology Reports TEST:Urine Culture STATUS:Order in Progress BODY SITE: SOURCE:Urine, Catheterized COLLECTED DATE/TIME:01/21/24 10:57 AM PRELIMINARY REPORT >100,000 cfu/ml Citrobacter freundii Susceptibility to follow. Social History Social History Type Response Tobacco Former tobacco user Tobacco Use:. Quit over 50 years ago per day. Sex Male Patient Care team information Care Team Personnel Name: Aurelia Venegas MD Position: Physician Member Role: Informed Provider Address: Address: [address] [place] [address] [place] [address]- Care Team Related Persons Name: HAYES RILEY Address: Home [address] [place] [address], [phone]
--- OUTSIDE RECORDS SUMMARY | 2024-05-18 09:19 | XMS_ITS | Continuity of Care Document ---
Author Name Unknown Organization [facility] Address [address] [place] [address] Care Team Providers Care [employer] System Freight Car Cleaner Name Role Phone Aurelia Venegas Primary Care Physician [phone] Encounter [place] Date(s): 09/10/23 - 09/10/[address] [address] Discharge Disposition: Home or Self Care Attending [...] Recorded tetanus/diphth/pertuss (Tdap) adult/adol 04/03/11 Recorded Novel Tfkljpnji-L3Y3-08, all formulation 12/29/09 Recorded Novel Elargyecz-F8L4-53, all formulation 1 12/29/09 Recorded tetanus-diphth toxoids (Td) adult/adol 12/01/04 Re corded Not Given Vaccine Date Status Refusal Reason Td(adult) unspecified formulation 2 05/10/22 Not G iven Patient Refuses 1Result Comment: Duplicated 2Result Comment: Patient Declined Last Modified on 09-13-2021 Medications Bactrim DS 800 mg-160 mg oral tablet 1 tab, Oral, every 12 hr, # 56 tab, 0 Refill(s), Pharmacy: [facility] #58, 167, cm, 04/23/22 13:16:00 EDT, Height/Length Dosing, 68, kg, 04/23/22 13:16:00 EDT, Weight Dosing Start Date: 08/10/23 Stop Date: 09/07/23 Status: Ordered clobetasol 0.05% topical cream 1 graeme, Topical, BID, apply sparingly to affected areas twice daily, # 15 g, 3 Refill(s), Pharmacy: [facility] #58, 167, cm, 04/23/22 13:16:00 EDT, Height/Length [...] Daily, # 90 cap, 3 Refill(s), Pharmacy: [facility] #58, 167, cm, 04/23/22 13:16:00 EDT, Height/Length Dosing, 68, kg, 04/23/22 13:16:00 EDT, Weight Dosing Start Date: 03/18/23 Status: Ordered tamsulosin 0.4 mg oral capsule 0.4 mg = 1 cap, Oral, Daily, after a meal, # 90 cap, 3 Refill(s), Pharmacy: [facility] #58, 167, cm, 04/23/22 13:16:00 EDT, Height/Length Dosing, 68, kg, 04/23/22 13:16:00 EDT, Weight Dosing Start Date: 04/24/22 Stop Date: 04/19/23 Status: Ordered tamsulosin 0.4 mg oral capsule 0.4 mg = 1 cap, Oral, Daily, # 90 cap, 3 Refill(s), Pharmacy: [facility] #58, 167, cm, 04/23/22 13:16:00 EDT, Height/Length [...] Results Laboratory List Name Date PSA Diagnostic 09/10/23 Most recent to oldest [Reference Range]: 1 PSA Total Diagnostic [0.00-4.00 ng/mL] 3 7.88 ng/mL 1 *HI* (09/10/23 9:13 AM) 1Interpretive Data: The testing method is an heterogeneous enzyme Immunoassay manufactured by [employer] and performed on the [employer] system. Values obtained with different assay methods [...] Physician Member Role: Informed Provider Address: Address: [place] [address]- Care Team Related Persons Name: RILEY HAYES
--- OUTSIDE RECORDS SUMMARY | 2024-05-18 09:19 | XMS_ITS | Continuity of Care Document ---
Author Name Unknown Organization [facility] Address [address] [place] [address] Care Team Providers Care Manager Books Name Role Phone Aurelia Venegas Primary Care Physician Encounter [facility] Date(s): 09/16/22 - 09/16/[address] [id number] Discharge Disposition: Home or Self Care Attending Physician: Aurelia Venegas MD Admitting Physician: Aurelia Venegas MD Allergies, Adverse Reactions, [...] 10/10/11 Larry rded influenza virus vaccine, inactivated 10/4/10 Larry rded influenza virus vaccine, inactivated 11/16/09 Larry rded influenza virus vaccine, inactivated 09/28/08 Larry rded influenza virus vaccine, inactivated 09/22/07 Larry rded influenza virus vaccine, inactivated 11/12/06 Larry rded pneumococcal 23-polyvalent vaccine 10/15/12 Record ed pneumococcal 23-polyvalent vaccine 12/01/99 Record ed zoster vaccine live 04/15/12 Recorded tetanus/diphth/pertuss (Tdap) adult/adol 04/03/11 Recorded Novel [id number], all formulation 12/29/09 Recorded Novel [id number], all formulation 1 12/29/09 Recorded tetanus-diphth toxoids (Td) adult/adol 12/01/04 Re corded Not Given Vaccine Date Status Refusal Reason Td(adult) unspecified formulation 2 05/10/22 Not Kaleb henson Patient Refuses 1Result Comment: Duplicated 2Result Comment: Patient Declined Last Modified on 09-13-2021 Medications ibuprofen 200 mg oral tablet mg = tab, Oral, PRN as needed for pain, 0 Refill(s) Start Date: 05/07/22 Status: Ordered latanoprost 0.005% ophthalmic solution 1 drops, Eye-Both, every night at bedtime Start Date: 04/25/22 Status: Ordered omeprazole 40 mg oral delayed release capsule 40 mg = 1 cap, Oral, Daily, # 90 cap, 1 Refill(s), Pharmacy: [id number], 167, cm, 04/23/22 13:16:00 EDT, Height/Length Dosing, 68, kg, 04/23/22 13:16:00 EDT, Weight Dosing Start Date: 06/26/22 Status: Ordered tamsulosin 0.4 mg oral capsule 0.4 mg = 1 cap, Oral, Daily, after a meal, # 90 cap, 3 Refill(s), Pharmacy: [id number], 167, cm, 04/23/22 13:16:00 EDT, Height/Length [...] Laboratory List Name Date .Manual Differential ([facility]) 09/16/22 CBC w/ Diff 09/16/22 Comprehensive Metabolic Panel (CMP) 08/31 06/21 Most recent to oldest [Reference Range]: 1 WBC [5.0-10.0 x10^3/mcL] 6.3 x10^3/mcL (09/16/22 11:46 AM) RBC [4.6-6.0 x10^6/mcL] 4.5 x10^6/mcL *LOW* (09/16/22 11:46 AM) Segs Man [40-75 %] 38 % *LOW* (09/16/22 11:46 AM) Lymph Man [20-50 %] 20 % (09/16/22 11:46 AM) Mobile Man 23 % *NA* (09/16/22 11:46 AM) Eos Man 1 % *NA* (09/16/22 11:46 AM) BUN [7-18 mg/dL] 22 mg/dL *HI* (09/16/22 11:46 AM) Glucose Level [74-106 mg/dL] 100 mg/dL (09/16/22 11:46 AM) [place] Man 1 % *NA* (09/16/22 11:46 AM) Lymph, Atyp Man 17 % *NA* (09/16/22 11:46 AM) Potassium Level [3.5-5.1 mmol/L] 4.7 mmo l/L (09/16/22 11:46 AM) MCV [80.0-103.0 fL] 97.8 fL (09/16/22 11:46 AM) RBC Morph Normal (09/16/22 11:46 AM) AST [15-37 unit/L] 16 unit/L (09/16/22 11:46 AM) ALT [14-59 unit/L] 28 unit/L (09/16/22 1146 AM) MCHC [31.0-35.0 g/dL] 34.2 g/dL (09/16/2246 AM) Sodium Level [136-145 mmol/L] 139 mmol/L (09/16/22 1146 AM) Hct [41.0-51.0 %] 43.9 % (09/16/2246 AM) Calcium Level [8.5-10.1 mg/dL] 9.8 mg/dL (09/16/2246 AM) Albumin Level [3.4-5.0 g/dL] 4.1 g/dL (09/16/2246 AM) Protein Total [6.4-8.2 g/dL] 7.8 g/dL (09/16/2246 AM) MCH [26.0-32.0 pg] 33.4 pg *HI* (09/16/2246 AM) Bilirubin Total [0.2-1.0 mg/dL] 0.6 mg/d L (09/16/22:46 AM) Hgb [14.0-18.0 g/dL] 15.0 g/dL (09/16/22:46 AM) Alk Phos [46-146 unit/L] 64 unit/L (09/16/22:46 AM) Band Man [0-5 %] 0 % (09/16/22 11:46 AM) Platelets [130-450 x10^3/mcL] 120 x10^3/ mcL *LOW* (09/16/2246 AM) CO2 [21-32 mmol/L] 31 mmol/L (09/16/22 11:46 AM) eGFR Non-AA [>=60] 56 *LOW* (09/16/22 11:46 AM) eGFR AA [>=60] 56 *LOW* (09/16/2246 AM) Chloride Level [98-107 mmol/L] 103 mmol/ L (09/16/22 11:46 AM) RDW-CV [11.5-17.0 %] 13.7 % (09/16/22 11:46 AM) Abs Neut Man 2.4 x10^3/mcL *NA* (09/16/22 11:46 AM) Creatinine Level [0.70-1.30 mg/dL] 1.32 mg/dL *HI* (09/16/22 11:46 AM) Anion Gap [8-16 mmol/L] 5 mmol/L *LOW* (09/16/22 11:46 AM) Baso Man [0-1 %] 0 % (09/16/22 11:46 AM) Social History Social History Type Response Tobacco Former tobacco user Tobacco Use:. Quit over 50 years ago per day. Sex Male Patient Care team information Personnel Name: Aurelia Venegas MD Address: Address: [place] [address]- [place]
--- OUTSIDE RECORDS SUMMARY | 2024-05-18 09:19 | XMS_ITS | Continuity of Care Document ---
Author Name Unknown Organization [facility] Address [address] [place] [address] Care Team Providers Care It Web Development Consultant Name Role Phone Aurelia Venegas Primary Care Physician [phone] Encounter [id number] Date(s): 12/07/23 - 12/08/[address] [address] Encounter Diagnosis Abdominal pain(Discharge Diagnosis) - 12/08/23 Cholelithiases(Discharge Diagnosis) - 12/08/23 Prostate cancer(Discharge Diagnosis) - 12/08/23 Discharge Disposition: Home or Self Care Attending Physician: Efe Altamirano MD Admitting Physician: Efe Altamirano MD Allergies, Adverse Reactions, [...] 09/27/16 Larry rded influenza virus vaccine, inactivated 10/30/15 Larry rded influenza virus vaccine, inactivated 09/23/14 [...] Recorded tetanus/diphth/pertuss (Tdap) adult/adol 04/03/11 Recorded Novel [id number], all formulation 12/29/09 Recorded Novel [id number], all formulation 1 12/29/09 Recorded tetanus-diphth toxoids (Td) adult/adol 12/01/04 Re corded Not Given Vaccine Date Status Refusal Reason Td(adult) unspecified formulation 2 05/10/22 Not G iven Patient Refuses 1Result Comment: Duplicated 2Result Comment: Patient Declined Last Modified on 09-13-2021 Medications Bactrim DS 800 mg-160 mg oral tablet 1 tab, Oral, every 12 hr, # 56 tab, 0 Refill(s), Pharmacy: [facility], 167, cm, 04/23/22 13:16:00 EDT, Height/Length Dosing, 68, kg, 04/23/22 13:16:00 EDT, Weight Dosing Start Date: 08/10/23 Stop Date: 09/07/23 Status: Ordered clobetasol 0.05% topical cream 1 graeme, Topical, BID, apply sparingly to affected areas twice daily, # 15 g, 3 Refill(s), Pharmacy: [facility], 167, cm, 04/23/22 13:16:00 EDT, Height/Length [...] hr, # 14 tab, 0 Refill(s), Pharmacy: [facility], 167, cm, 04/23/22 13:16:00 EDT, Height/Length Dosing, 68, kg, 04/23/22 13:16:00 EDT, Weight Dosing Start Date: 09/12/23 Stop Date: 09/26/23 Status: Ordered omeprazole 40 mg oral delayed release capsule 1 cap, Oral, Daily, # 90 cap, 3 Refill(s), Pharmacy: [facility], 167, cm, 04/23/22 13:16:00 EDT, Height/Length Dosing, 68, kg, 04/23/22 13:16:00 EDT, Weight Dosing Start Date: 03/18/23 Status: Ordered ondansetron 4 mg oral tablet, disintegrating 4 mg = 1 tab, Oral, TID, PRN nausea/vomiting, X 5 days, # 15 tab, 0 Refill(s), 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, Pharmacy: [facility], 170, cm, 12/07/23 21:21:00 EST, Height, 63.7, kg, 12/07/23 21:27:00 EST, Weight Dosing Start Date: 12/08/23 Stop Date: 12/13/23 Status: Ordered tamsulosin 0.4 mg oral capsule 0.4 mg = 1 cap, Oral, Daily, after a meal, # 90 cap, 3 Refill(s), Pharmacy: [facility], 167, cm, 04/23/22 13:16:00 EDT, Height/Length Dosing, 68, kg, 04/23/22 13:16:00 EDT, Weight Dosing Start Date: 04/24/22 Stop Date: 04/19/23 Status: Ordered tamsulosin 0.4 mg oral capsule 0.4 mg = 1 cap, Oral, Daily, # 90 cap, 3 Refill(s), Pharmacy: [facility], 167, cm, 04/23/22 13:16:00 EDT, Height/Length Dosing, 68, kg, 04/23/22 13:16:00 EDT, Weight Dosing Start Date: 04/14/23 Stop Date: 04/08/24 Status: Ordered Mental Status 12/07/23 Eye Opening Response [place] Spontaneous ly Best Verbal Response [place] Oriented Best Motor Response [place] Obeys comman ds [place] Coma Score 15 Problem List Condition Confirmation Course Effective Dates [...] x4 12/24/16 Results Laboratory List Name Date Urinalysis Microscopic 12/07/23 Urinalysis with Micro if Indicated and C ulture if Indicated 12/07/23 Lipase Level 12/07/23 Troponin-I 12/07/23 CBC w/ Diff 12/07/23 Comprehensive Metabolic Panel (CMP) Lactic Acid 12/07/23 Automated Diff 12/07/23 Most recent to oldest [Reference Range]: 1 WBC [5.0-10.0 x10^3/mcL] 5.9 x10^3/mcL (12/07/23 9:53 PM) RBC [4.6-6.0 x10^6/mcL] 4.3 x10^6/mcL *LOW* (12/07/23 9:53 PM) Neutro Auto [40.0-75.0 %] 67.1 % (12/07/23 9:53 PM) Lymph Auto [20.0-50.0 %] 25.7 % (12/07/23 9:53 PM) [place] Auto [2.0-15.0 %] 6.3 % (12/07/23 9:53 PM) Basophil Auto [0.0-1.0 %] 0.3 % (12/07/23 9:53 PM) BUN [7-18 mg/dL] 17 mg/dL (12/07/23 9:53 PM) UA Color Yellow (12/07/23 11:30 PM) UA WBC [0-3] 0-3 (12/07/23 11:30 PM) Glucose Level [74-106 mg/dL] 130 mg/dL *HI* (12/07/23 9:53 PM) Potassium Level [3.5-5.1 mmol/L] 4.2 mmo l/L (12/07/23 9:53 PM) MCV [80.0-96.0 fL] 97.2 fL *HI* (12/07/23 9:53 PM) UA Urobilinogen Normal (12/07/23 11:30 PM) UA Bili [Negative] 1+ *ABN* (12/07/23 11:30 PM) UA Ketones Trace *ABN* (12/07/23 11:30 PM) AST [15-37 unit/L] 13 unit/L *LOW* (12/07/23 9:53 PM) ALT [16-63 unit/L] 26 unit/L (12/07/23 9:53 PM) MCHC [31.0-35.0 g/dL] 34.0 g/dL (12/07/23 9:53 PM) Troponin-I [0.0-76.2 pg/mL] 5.1 pg/mL (12/07/23 10:16 PM) Sodium Level [136-145 mmol/L] 136 mmol/L (12/07/23 9:53 PM) UA RBC [0-2] 25-50 (12/07/23 11:30 PM) UA Leuk Est Negative (12/07/23 11:30 PM) UA Nitrite Negative (12/07/23 11:30 PM) UA Glucose [Negative] Negative (12/07/23 11:30 PM) Hct [41.0-51.0 %] 42.0 % (12/07/23 9:53 PM) UA Bacteria Rare /HPF (12/07/23 11:30 PM) Lipase Level [16-77 unit/L] 40 unit/L 1 (12/07/23 10:16 PM) Calcium Level [8.5-10.1 mg/dL] 9.7 mg/dL (12/07/23 9:53 PM) Albumin Level [3.4-5.0 g/dL] 3.6 g/dL (12/07/23 9:53 PM) Protein Total [6.4-8.2 g/dL] 7.9 g/dL (12/07/23 9:53 PM) UA Protein Trace *ABN* (12/07/23 11:30 PM) MCH [26.0-32.0 pg] 33.1 pg *HI* (12/07/23 9:53 PM) Neutro Absolute 4.0 x10^3/mcL *NA* (12/07/23 9:53 PM) Bilirubin Total [0.2-1.0 mg/dL] 1.4 mg/d L *HI* (12/07/23 9:53 PM) Hgb [14.0-18.0 g/dL] 14.3 g/dL (12/07/23 9:53 PM) Alk Phos [46-146 unit/L] 127 unit/L (12/07/23 9:53 PM) UA Blood 3+ *ABN* (12/07/23 11:30 PM) UA Mucous None Seen /HPF (12/07/23 11:30 PM) UA Spec Grav 1.025 *NA* (12/07/23 11:30 PM) Platelets [130-450 x10^3/mcL] 143 x10^3/ mcL (12/07/23 9:53 PM) CO2 [21-32 mmol/L] 28 mmol/L (12/07/23 9:53 PM) Lactic Acid Lvl [0.7-2.0 mmol/L] 1.3 mmo l/L (12/07/23 9:53 PM) UA Squam Epithelial [None Seen] None See n (12/07/23 11:30 PM) UA pH 6.0 *NA* (12/07/23 11:30 PM) eGFR Non-AA [>=60] 53 *LOW* (12/07/23 9:53 PM) eGFR AA [>=60] 53 *LOW* (12/07/23 9:53 PM) UA Appear Hazy *ABN* (12/07/23 11:30 PM) Chloride Level [98-107 mmol/L] 100 mmol/ L (12/07/23 9:53 PM) RDW-CV [11.5-14.5 %] 12.5 % (12/07/23 9:53 PM) Imm Gran Auto [0.0-0.9 %] 0.3 % (12/07/23 9:53 PM) Slide Review Not Indicated (12/07/23 9:53 PM) UA Culture Ind?. Not Indicated (12/07/23 11:30 PM) Creatinine Level [0.70-1.30 mg/dL] 1.38 mg/dL *HI* (12/07/23 9:53 PM) Eos, Auto [1.0-6.0 %] 0.3 % *LOW* (12/07/23 9:53 PM) 1Interpretive Data: Effective 09/19/22, [facility] has switched to a revised Lipase test.Note new ReferenceRange. Vital Signs Most recent to oldest [Reference Range]: 1 2 3 Temperature Temporal Artery [36-38 Deg C] 36.6 Deg C (12/07/23 9:19 PM) Peripheral Pulse Rate [60-100 bpm] 85 bpm (12/08/23 12:25 AM) 75 bpm (12/08/23 12:00 AM) 64 bpm (12/07/23 11:00 PM) Heart Rate Monitored [60-100 bpm] 84 bpm (12/08/23 12:25 AM) 70 bpm (12/08/23 12:00 AM) 69 bpm (12/07/23 11:00 PM) Respiratory Rate [12-24 br/min] 20 br/min (12/08/23 12:25 AM) 17 br/min (12/08/23 12:00 AM) 17 br/min (12/07/23 11:00 PM) Blood Pressure [90-140/60-90 mmHg] 146/90mmHg *HI* (12/08/23 12:00 AM) 140/88mmHg (12/07/23 10:30 PM) 160/93mmHg *HI* (12/07/23 9:19 PM) Mean Arterial Pressure, Cuff [70-110 mmHg] 109 mmHg (12/08/23 12:00 AM) 105 mmHg (12/07/23 10:30 PM) 115 mmHg *HI* (12/07/23 9:19 PM) Weight 63.7 kg (12/07/23 9:19 PM) Weight Dosing 63.700 kg (12/07/23 9:19 PM) Height 170 cm (12/07/23 9:19 PM) Body Mass Index 22.04 kg/m2 (12/07/23 9:19 PM) Social History Social History Type Response Tobacco Former tobacco user Tobacco Use:. Quit over 50 years ago per day. Sex Male Hospital Discharge Instructions Patient Education 12/08/2023 00:01:41 Cholelithiasis, [id number]-lb-[id number] Cholelithiasis Cholelithiasis happens when gallstones form in the gallbladder. The gallbladder stores bile. Bile is a fluid that helps digest fats. Bile can harden and form into gallstones. If they cause a blockage, they can cause pain (gallbladder attack). What are the causes? This condition may be caused by: ??? Some blood diseases, such as sickle cell anemia. ??? Too much of a fat-like substance (cholesterol) in your bile. ??? Not enough bile salts in your bile. These salts help the body absorb and digest fats. ??? The gallbladder not emptying fully or often enough. This is common in women. What increases the risk? The following factors may make you more likely to develop this condition: ??? Being female. ??? Being many times. ??? Eating a lot of fried foods, fat, and refined carbs (refined carbohydrates). ??? Being very overweight (obese). ??? Being older than age 40. ??? Using medicines with female hormones in them for a long time. ??? Losing weight fast. ??? Having gallstones in your family. ??? Having some health problems, such as diabetes, Crohn's disease, or liver disease. What are the signs or symptoms? Often, there may be gallstones but no symptoms. These gallstones are called silent gallstones. If agallstone causes a blockage, you may get sudden pain. The pain: ??? Can be in the upper right part of your belly (abdomen). ??? Normally comes at night or after you eat. ??? Can last an hour or more. ??? Can spread to your right shoulder, back, or chest. ??? Can feel like discomfort, burning, or fullness in the upper part of your belly (indigestion). If the blockage lasts more than a few hours, you can get an infection or swelling. You may: ??? Feel like you may vomit. ??? Vomit. ??? Feel bloated. ??? Have belly pain for 5 hours or more. ??? Feel tender in your belly, often in the upper right part and under your ribs. ??? Have fever or chills. ??? Have skin or the white parts of your eyes turn yellow (jaundice). ??? Have dark pee (urine) or pale poop (stool). How is this treated? Treatment for this condition depends on how bad you feel. If you have symptoms, you may need: ??? Home care, if symptoms are not very bad. ??? Do not eat for 12???24 hours. Drink only water and clear liquids. ??? Start to eat simple or clear foods after 1 or 2 days. Try broths and crackers. ??? You may need medicines for pain or stomach upset or both. ??? If you have an infection, you will need antibiotics. ??? A hospital stay, if you have very bad pain or a very bad infection. ??? Surgery to remove your gallbladder. You may need this if: ??? Gallstones keep coming back. ??? You have very bad symptoms. ??? Medicines to break up gallstones. Medicines: ??? Are best for small gallstones. ??? May be used for up to 6???12 months. ??? A procedure to find and take out gallstones or to break up gallstones. Follow these instructions at home: Medicines ??? Take zkcv-oxp-hycetbc and prescription medicines only as told by your doctor. ??? If you were prescribed an antibiotic medicine, take it as told by your doctor. Do not stop taking the antibiotic even if you start to feel better. ??? Ask your doctor if the medicine prescribed to you requires you to avoid driving or using machinery. Eating and drinking ??? Drink enough fluid to keep your urine pale yellow. Drink water or clear fluids. This is important when you have pain. ??? Eat healthy foods. Choose: ??? Fewer fatty foods, such as fried foods. ??? Fewer refined carbs. Avoid breads and grains that are highly processed, such as white bread andwhite rice. Choose whole grains, such as whole-wheat bread and brown rice. ??? More fiber. Almonds, fresh fruit, and beans are healthy sources. General instructions ??? Keep a healthy weight. ??? Keep all follow-up visits as told by your doctor. This is important. Where to find more information ??? [employer] [place] [employer] and [employer]est[employer]: www.niddk.nih.gov Contact a doctor if: ??? You have sudden pain in the upper right part of your belly. Pain might spread to your right shoulder, back, or chest. ??? You have been diagnosed with gallstones that have no symptoms and you get: ??? Belly pain. ??? Discomfort, burning, or fullness in the upper part of your abdomen. ??? You have dark urine or pale stools. Get help right away if: ??? You have sudden pain in the upper right part of your abdomen, and the pain lasts more than 2 hours. ??? You have pain in your abdomen, and: ??? It lasts more than 5 hours. ??? It keeps getting worse. ??? You have a fever or chills. ??? You keep feeling like you may vomit. ??? You keep vomiting. ??? Your skin or the white parts of your eyes turn yellow. Summary ??? Cholelithiasis happens when gallstones form in the gallbladder. ??? This condition may be caused by a blood disease, too much of a fat-like substance in the bile, or not enough bile salts in bile. ??? Treatment for this condition depends on how bad you feel. ??? If you have symptoms, do not eat or drink. You may need medicines. You may need a hospital stayfor very bad pain or a very bad infection. ??? You may need surgery if gallstones keep coming back or if you have very bad symptoms. This information is not intended to replace advice given to you by your health care provider. Make sure you discuss any questions you have with your health care provider. Document Revised: 01/05/2021 Document Reviewed: 10/09/2020 [employer] Patient Education ?? 2022 [employer] 12/08/2023 00:01:38 Abdominal Pain, Adult, Dntm-fc-Plgf Abdominal Pain, Adult Many things can cause belly (abdominal) pain. Most times, belly pain is not dangerous. Many cases of belly pain can be watched and treated at home. Sometimes, though, belly pain is serious. Your doctor will try to find the cause of your belly pain. Follow these instructions at home: Medicines ??? Take dvir-dfj-tvxcysl and prescription medicines only as told by your doctor. ??? Do not take medicines that help you poop (laxatives) unless told by your doctor. General instructions ??? Watch your belly pain for any changes. ??? Drink enough fluid to keep your pee (urine) pale yellow. ??? Keep all follow-up visits as told by your doctor. This is important. Contact a doctor if: ??? Your belly pain changes or gets worse. ??? You are not hungry, or you lose weight without trying. ??? You are having trouble pooping (constipated) or have watery poop (diarrhea) for more than 2???3days. ??? You have pain when you pee or poop. ??? Your belly pain wakes you up at night. ??? Your pain gets worse with meals, after eating, or with certain foods. ??? You are vomiting and cannot keep anything down. ??? You have a fever. ??? You have blood in your pee. Get help right away if: ??? Your pain does not go away as soon as your doctor says it should. ??? You cannot stop vomiting. ??? Your pain is only in areas of your belly, such as the right side or the left lower part of the belly. ??? You have bloody or black poop, or poop that looks like tar. ??? You have very bad pain, cramping, or bloating in your belly. ??? You have signs of not having enough fluid or water in your body (dehydration), such as: ??? Dark pee, very little pee, or no pee. ??? Cracked lips. ??? Dry mouth. ??? Sunken eyes. ??? Sleepiness. ??? Weakness. ??? You have trouble breathing or chest pain. Summary ??? Many cases of belly pain can be watched and treated at home. ??? Watch your belly pain for any changes. ??? Take ahur-amu-rofkozj and prescription medicines only as told by your doctor. ??? Contact a doctor if your belly pain changes or gets worse. ??? Get help right away if you have very bad pain, cramping, or bloating in your belly. This information is not intended to replace advice given to you by your health care provider. Make sure you discuss any questions you have with your health care provider. Document Revised: 03/27/2020 Document Reviewed: 03/27/2020 [employer] Patient Education ?? 2022 [employer]. Follow Up Care 12/07/2023 21:19:24 With:Homer Rodríguez MD Address: [facility] [address] [place] [address]- When:1 week Physician Emergency department Note * Efe Altamirano MD: PERFORM Event Display: ED Note Physician Authored Date: [id number] DEJA HAYES :1945 Age:78 years Sex:Male Visit Date:12/07/2023 Primary Care Physician: Aurelia Venegas MD Basic Information Time Seen: Efe Altamirano MD / 12/07/2023 21:22 Chief Complaint Urinary vizcaino placed on 12/05/2023, due to retention. Today pt has generalizred abdominal pain, intermittent severity with n/v/d. Pt states decreased po intake today History Of Present Illness: 78-year-old male comes to the ER by private car for evaluation of abdominal pain??nausea vomiting and some diarrhea.?? Reports that he took less orally today.?? No reported fever or food poisoning orrecent antibiotics.?? The patient was seen by Dr. Rodríguez in urology a couple days ago for urine retention and Vizcaino catheter was inserted. ??Contingency plan was for him to get a??transurethral resection of prostate eventually.?? Patient has had rising prostate specific antigen??recently??raising concern for??prostate cancer.?? The PSA did not improve after course of antibiotic to treat??potential ??prostatitis.?? No URI symptoms. ??Patient had some abdominal discomfort that was nonfocal??earlier, but specifically not on the right upper quadrant.?? Does not report any new back pain.?? No fever.?? No chest pain or shortness of breath or cough or URI symptoms. Review of Systems: Per HPI Physical Exam Vitals & Measurements T:??36.6?C ??(Temporal Artery)?? HR:??85??(Peripheral)?? HR:??84??(Monitored)?? RR:??20?? BP:??146/90?? SpO2:??96%?? HT:??170??cm?? WT:??63.7??kg?? BMI:??22.04?? Pain Score:??3?? O2 Therapy:??Room air?? General:??alert,??no acute distress.?? When I saw the patient he was hemodynamically stable appearscomfortable skin is warm and dry does not look septic. Skin:??warm,??dry. Head:??no??trauma,??normocephalic. Neck:??trachea??midline,??no??adenopathy,??no??tenderness. Eye:??normal??conjunctiva, sclera??clear. Cardiovascular:??regular??rate and rhythm,??normal??peripheral perfusion. Respiratory: lungs??CTA, respirations??non-labored. Chest wall:??no??deformity. Gastrointestinal:??soft,??non distended,??mild nonfocal discomfort more??on the lower aspect of theabdomen but specifically العراقي's and McBurney's were negative. ??On repeat palpation there was no right upper quadrant pain. ??No??guarding.?? No CVA tenderness. Extremities:??no??deformity,??no??trauma.?? Well-perfused. Neurological:??oriented??x 4, LOC??appropriate for age??, speech??normal. Psychiatric:??cooperative, affect??appropriate for age,?? Medical Decision Making: Medical Decision-Making: Clinical lab tests: ordered and reviewed -??Yes Tests in the radiology section of CPT??: ordered and reviewed -??Yes ? Obtain history from someone other than the patient -??Yes, Dr. Rodríguez Review and summarize past medical records -??Yes Discuss the patient with other providers -??Yes, Dr. Rodríguez Independent visualization of images, tracings, or specimens? Yes ?? Differential diagnosis includes gastroenteritis, viral illness,??despite CT scan report??does not appear to be any acute cholecystitis based on exam and??LFTs and CBC.?? Patient has some findings suspicious for metastatic prostate cancer. ??Suspect this may cause some abdominal discomfort also.?? Here the patient got Toradol and Zofran and felt markedly better and??wanting to go home.?? I will set him up for an outpatient gallbladder ultrasound hopefully tomorrow to further??evaluate the gallbladder. ??I asked him to stop by the ER afterwards to obtain results.?? I did send him home with someZofran and told him he could take some Tylenol as needed for the discomfort and after speaking withDr. Rodríguez I also told him that Dr. Rodríguez would relay to him the findings as it pertains to the prostate.?? He was discharged in stable and improved condition. ?? Last 24 Hours?? Chemistry ? Event Name?? Event Result?? Date/Time?? Sodium Level 136 mmol/L 12/07/23 21:53:00 Potassium Level 4.2 mmol/L 12/07/23 21:53:00 Chloride Level 100 mmol/L 12/07/23 21:53:00 CO2 28 mmol/L 12/07/23 21:53:00 Alk Phos 127 unit/L 12/07/23 21:53:00 AST 13 unit/L??Low 12/07/23 21:53:00 ALT 26 unit/L 12/07/23 21:53:00 BUN 17 mg/dL 12/07/23 21:53:00 Glucose Level 130 mg/dL??High 12/07/23 21:53:00 Creatinine Level 1.38 mg/dL??High 12/07/23 21:53:00 eGFR AA 53??Low 12/07/23 21:53:00 eGFR Non-AA 53??Low 12/07/23 21:53:00 Calcium Level 9.7 mg/dL 12/07/23 21:53:00 Protein Total 7.9 g/dL 12/07/23 21:53:00 Albumin Level 3.6 g/dL 12/07/23 21:53:00 Bilirubin Total 1.4 mg/dL??High 12/07/23 21:53:00 Lactic Acid Lvl 1.3 mmol/L 12/07/23 21:53:00 Lipase Level 40 unit/L 12/07/23 22:16:00 Troponin-I 5.1 pg/mL 12/07/23 22:16:00 ? Hematology ? Event Name?? Event Result?? Date/Time?? WBC 5.9 x10^3/mcL 12/07/23 21:53:00 RBC 4.3 x10^6/mcL??Low 12/07/23 21:53:00 Hgb 14.3 g/dL 12/07/23 21:53:00 Hct 42 % 12/07/23 21:53:00 MCV 97.2 fL??High 12/07/23 21:53:00 MCH 33.1 pg??High 12/07/23 21:53:00 MCHC 34 g/dL 12/07/23 21:53:00 RDW-CV 12.5 % 12/07/23 21:53:00 Platelets 143 x10^3/mcL 12/07/23 21:53:00 Neutro Auto 67.1 % 12/07/23 21:53:00 Lymph Auto 25.7 % 12/07/23 21:53:00 [place] Auto 6.3 % 12/07/23 21:53:00 Eos, Auto 0.3 %??Low 12/07/23 21:53:00 Basophil Auto 0.3 % 12/07/23 21:53:00 Imm Gran Auto 0.3 % 12/07/23 21:53:00 Neutro Absolute 4 x10^3/mcL 12/07/23 21:53:00 Slide Review Not Indicated 12/07/23 21:53:00 ? Urinalysis ? Event Name?? Event Result?? Date/Time?? UA Color YELLOW. 12/07/23 23:30:00 UA Appear Hazy- Clinitek Abnormal 12/07/23 23:30:00 UA Glucose NEGATIVE 12/07/23 23:30:00 UA Bili 1+ Abnormal 12/07/23 23:30:00 UA Ketones TRACE. Abnormal 12/07/23 23:30:00 UA Spec Grav 1.025 12/07/23 23:30:00 UA Blood 3+ Abnormal 12/07/23 23:30:00 UA pH 6.0 12/07/23 23:30:00 UA Protein TRACE. Abnormal 12/07/23 23:30:00 UA Urobilinogen 0.2 Uro 12/07/23 23:30:00 UA Nitrite NEGATIVE 12/07/23 23:30:00 UA Leuk Est NEGATIVE 12/07/23 23:30:00 UA Culture Ind?. Not Indicated 12/07/23 23:30:00 UA WBC 0-3 12/07/23 23:30:00 UA RBC 25-50 12/07/23 23:30:00 UA Squam Epithelial None Seen 12/07/23 23:30:00 UA Mucous None Seen 12/07/23 23:30:00 UA Bacteria Rare 12/07/23 23:30:00 ?* Final Report * ?? CT Abdomen and Pelvis w/ Contrast No PO PROCEDURE INFORMATION:?? Exam: CT Abdomen And Pelvis With Contrast?? Exam date and time: 12/07/2023 10:55 PM?? Age: 78 years old?? Clinical indication: Abd pain? TECHNIQUE:?? Imaging protocol: Computed tomography of the abdomen and pelvis with?? contrast.?? Radiation optimization: All CT scans at this facility use at least?? one of these dose optimization techniques: automated exposure?? control; mA and/or kV adjustment per patient size (includes targeted?? exams where dose is matched to clinical indication); or iterative?? reconstruction.?? Contrast material: OMIN 350; Contrast volume: 90 ml; Contrast route:?? INTRAVENOUS (IV); ? COMPARISON:?? No relevant prior studies available.? FINDINGS:?? Lungs: The visualized lung bases are clear?? Diaphragm: Small hiatal hernia.? Liver: Normal. No mass.?? Gallbladder and bile ducts: Multiple calcified and gas producing?? gallstones within the gallbladder. There is haziness of the fat?? surrounding the gallbladder.?? Pancreas: Normal. No ductal dilation.?? Spleen: The spleen is enlarged. No splenic mass.?? Adrenal glands: Normal. No mass.?? Kidneys and ureters: 1.4 cm simple cyst in the lower pole of the left?? kidney. No other renal abnormalities.?? Stomach and bowel: Unremarkable. No obstruction. No mucosal?? thickening.?? Appendix: No evidence of appendicitis.? Intraperitoneal space: Unremarkable. No free air. No significant?? fluid collection.?? Vasculature: Unremarkable. No abdominal aortic aneurysm.?? Lymph nodes: Enlarged retroperitoneal lymph nodes with the largest a?? conglomerate of lymph nodes in the left periaortic region measuring?? 5.4 x 5.9 cm extending from the level of the left renal artery to the?? proximal left common iliac artery. There are multiple right?? para-aortic lymph nodes as well. There are multiple enlarged right?? iliac chain lymph nodes and right pelvic sidewall lymph nodes. The?? largest in the pelvis measures 3.3 x 2.5 cm. No enlarged peritoneal?? or inguinal lymph nodes.?? Urinary bladder: Vizcaino catheter within the bladder. Air within the?? bladder is expected.?? Reproductive: Prostate is enlarged.?? Bones/joints: 8 mm sclerotic lesion within L4. More posteriorly?? within L4 is a 4 mm sclerotic lesion. There is also in 6 mm sclerotic?? lesion within L3. No acute fractures.?? Soft tissues: Unremarkable.? IMPRESSION:?? 1. ?? Cholelithiasis. The inflammatory changes surrounding the?? gallbladder are suspicious for acute cholecystitis in the proper?? clinical setting.?? 2. ?? Splenomegaly.?? 3. ?? Enlarged prostate.?? 4. ?? Retroperitoneal and pelvic adenopathy may be metastases from?? prostate cancer or secondary to lymphoma.?? 5. ?? Sclerotic lesions within L3 and L4 suspicious for metastases.? COMMENTS:?? Consistent with the [employer]'s Incidental?? Findings Committee white paper (J Am Kimberly Radiol 2018): Any?? incidental renal lesion less than 1 cm or classified as too small to?? characterize, or any incidental cystic renal lesion characterized as?? simple-appearing, is likely benign. No follow-up imaging is?? recommended for these lesions per consensus recommendations based on?? imaging criteria.? Report signed by: Juan Davenport On 12/07/2023 ??23:58:00 ? URL [1] Procedure No Qualifying Data Assessment/Plan 1.??Abdominal pain??R10.9 Ordered: ED Visit Follow [facility], Orders for future visit, 12/08/23 1:02:00 EST, Abdominal pain Cholelithiases Prostate cancer ?? 2.??Cholelithiases??K80.20 Ordered: ED Visit Follow [facility], Orders for future visit, 12/08/23 1:02:00 EST, Abdominal pain Cholelithiases Prostate cancer ?? 3.??Prostate cancer??C61 Ordered: ED Visit Follow [facility], Orders for future visit, 12/08/23 1:02:00 EST, Abdominal pain Cholelithiases Prostate cancer ?? Orders: ondansetron 4 mg oral tablet, disintegrating, 4 mg = 1 tab, Oral, TID, PRN nausea/vomiting, X 5 days, # 15 tab, 0 Refill(s), 12/13/23 0:59:00 EST, Pharmacy: [id number], 170, cm, 12/07/23 21:21:00 EST, Height, 63.7, kg, 12/07/23 21:27:00 EST, Weight Dosing Discharge Patient, 12/08/23 0:59:00 EST, Home Independently, Constant Indicator Patient Education Cholelithiasis, Jize-ao-Cmff Abdominal Pain, Adult, Ewze-qj-Oqqh Follow Up With When Contact Information Homer Rodríguez MD Within 1 week [facility] [address] [place] [id number]- Additional Instructions: Medication Reconciliation New Prescription ondansetron (ondansetron 4 mg oral tablet, disintegrating)1 tab Oral (given by mouth) 3 times a dayas needed nausea/vomiting for 5 Days. Refills: 0. ?? Unchanged clobetasol topical (clobetasol 0.05% topical cream)1 Application Topical (on the skin) 2 times a day for 30 Days. apply sparingly to affected areas twice daily. Refills: 3. ?? ibuprofen (ibuprofen 200 mg oral tablet)Oral (given by mouth) as needed as needed for pain. ?? latanoprost ophthalmic (latanoprost 0.005% ophthalmic solution)1 Drops Both eyes every night at bedtime. ?? levoFLOXacin (levoFLOXacin 500 mg oral tablet)1 tab Oral (given by mouth) every 24 hours for 14 Days. Refills: 0. ?? omeprazole (omeprazole 40 mg oral delayed release capsule)1 Capsules Oral (given by mouth) every day. Refills: 3. ?? sulfamethoxazole-trimethoprim (Bactrim DS 800 mg-160 mg oral tablet)1 tab Oral (given by mouth) every 12 hours for 28 Days. Refills: 0. ?? tamsulosin (tamsulosin 0.4 mg oral capsule)1 Capsules Oral (given by mouth) every day for 90 Days. after a meal. Refills: 3. ?? tamsulosin (tamsulosin 0.4 mg oral capsule)1 Capsules Oral (given by mouth) every day for 90 Days. Refills: 3. Problem List/Past Medical History Ongoing Vences's esophagus Cataract Gastroesophageal reflux disease Glaucoma Hyperlipidemia Mild persistent asthma Overweight Pain of right shoulder joint Prostate nodule Psychophysiologic insomnia Rotator cuff shoulder syndrome and allied disorders (Bilateral) Historical No qualifying data Procedure/Surgical History ???Colonoscopy (06/08/2020)???Inguinal Hernia Repair right (12/01/2002)???Right Knee Surgery (12/01/2002) Medication Administration Given THP ondansetron 4 mg Dis Tab, 4 tab, Oral Toradol, 15 mg, IV Push Zofran, 4 mg, IV Push Allergies No Known Medication Allergies Social History Alcohol Never Electronic Cigarette/Vaping Electronic Cigarette Use: Never. 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 Nutrition/Health Diet: Regular. Caffeine intake amount: 1 cup of coffee daily. Other Substance Use Never Tobacco Former tobacco user Tobacco Use:. Quit over 50 years ago per day. Family History Malignant tumor of colon: Father. Subarachnoid hemorrhage: Brother. Referral Orders ED Visit Follow [facility], Orders for future visit, 12/08/23 1:02:00 EST, Abdominal pain Cholelithiases Prostate cancer Lab Results CBC and Differential?? LATEST RESULTS?? HISTORICAL RESULTS?? WBC?? 12/07/23 21:53?? 5.9?? 04/18/23?? 5.1?? RBC?? 12/07/23 21:53?? 4.3 ??Low?? 03/18/23?? 4.4 ??Low?? Hgb?? 12/07/23 21:53?? 14.3?? 03/18/23?? 14.6?? Hct?? 12/07/23 21:53?? 42.0?? 03/18/23?? 43.4?? MCV?? 12/07/23 21:53?? 97.2 ??High?? 03/18/23?? 98.2 ??High?? MCH?? 12/07/23 21:53?? 33.1 ??High?? 03/18/23?? 33.0 ??High?? MCHC?? 12/07/23 21:53?? 34.0?? 03/18/23?? 33.6?? RDW-CV?? 12/07/23 21:53?? 12.5?? 03/18/23?? 13.6?? Platelets?? 12/07/23 21:53?? 143?? 03/18/23?? 112 ??Low?? Neutro Auto?? 12/07/23 21:53?? 67.1? Lymph Auto?? 12/07/23 21:53?? 25.7? [place] Auto?? 12/07/23 21:53?? 6.3? Eos, Auto?? 12/07/23 21:53?? 0.3 ??Low? Basophil Auto?? 12/07/23 21:53?? 0.3? Imm Gran Auto?? 12/07/23 21:53?? 0.3? Neutro Absolute?? 12/07/23 21:53?? 4.0? Slide Review?? 12/07/23 21:53?? Not Indicated?? 03/18/23?? Man Diff? Routine Chemistry?? LATEST RESULTS?? HISTORICAL RESULTS?? Sodium Level?? 12/07/23 21:53?? 136?? 03/18/23?? 140?? Potassium Level?? 12/07/23 21:53?? 4.2?? 03/18/23?? 4.4?? Chloride Level?? 12/07/23 21:53?? 100?? 03/18/23?? 103?? CO2?? 12/07/23 21:53?? 28?? 03/18/23?? 29?? Alk Phos?? 12/07/23 21:53?? 127?? 03/18/23?? 71?? AST?? 12/07/23 21:53?? 13 ??Low?? 03/18/23?? 16?? ALT?? 12/07/23 21:53?? 26?? 03/18/23?? 21?? BUN?? 12/07/23 21:53?? 17?? 03/18/23?? 19 ??High?? Glucose Level?? 12/07/23 21:53?? 130 ??High?? 03/18/23?? 101?? Creatinine Level?? 12/07/23 21:53?? 1.38 ??High?? 03/18/23?? 1.27?? eGFR AA?? 12/07/23 21:53?? 53 ??Low?? 03/18/23?? 59 ??Low?? eGFR Non-AA?? 12/07/23 21:53?? 53 ??Low?? 03/18/23?? 59 ??Low?? Calcium Level?? 12/07/23 21:53?? 9.7?? 03/18/23?? 9.8?? Protein Total?? 12/07/23 21:53?? 7.9?? 03/18/23?? 7.5?? Albumin Level?? 12/07/23 21:53?? 3.6?? 03/18/23?? 3.8?? Bilirubin Total?? 12/07/23 21:53?? 1.4 ??High?? 03/18/23?? 0.7?? Lactic Acid Lvl?? 12/07/23 21:53?? 1.3? Lipase Level?? 12/07/23 22:16?? 40? Cardiac Isoenzymes?? LATEST RESULTS?? Troponin-I?? 12/07/23 22:16?? 5.1? UA Macroscopic?? LATEST RESULTS?? UA Color?? 12/07/23 23:30?? Yellow?? UA Appear?? 12/07/23 23:30?? Hazy Abnormal?? UA Glucose?? 12/07/23 23:30?? Negative?? UA Bili?? 12/07/23 23:30?? 1+ Abnormal?? UA Ketones?? 12/07/23 23:30?? Trace Abnormal?? UA Spec Grav?? 12/07/23 23:30?? 1.025?? UA Blood?? 12/07/23 23:30?? 3+ Abnormal?? UA pH?? 12/07/23 23:30?? 6.0?? UA Protein?? 12/07/23 23:30?? Trace Abnormal?? UA Urobilinogen?? 12/07/23 23:30?? Normal?? UA Nitrite?? 12/07/23 23:30?? Negative?? UA Leuk Est?? 12/07/23 23:30?? Negative?? UA Culture Ind?.?? 12/07/23 23:30?? Not Indicated? UA Microscopic?? LATEST RESULTS?? UA WBC?? 12/07/23 23:30?? 0-3?? UA RBC?? 12/07/23 23:30?? 25-50?? UA Squam Epithelial?? 12/07/23 23:30?? None Seen?? UA Mucous?? 12/07/23 23:30?? None Seen?? UA Bacteria?? 12/07/23 23:30?? Rare? [1]??CT Abdomen and Pelvis w/ Contrast No PO; JeremiahUser, Generated 12/07/2023 22:55 EST Electronically Signed on 12/08/23 02:38 AM Efe Altamirano MD Emergency department Discharge instructions * Efe Altamirano MD: PERFORM Event Display: ED Discharge Information Authored Date: [id number] DEJA HAYES :1945 Age:78 years Sex:Male Visit Date:12/07/2023 Primary Care Physician: Aurelia Venegas MD Discharge Instructions We would like to thank you for allowing us to assist you with your healthcare needs. The following includes patient education materials and information regarding your injury/illness. Diagnosis from Today's Visit Abdominal pain Cholelithiases Prostate cancer Discharge Vitals Temperature??(Temporal Artery) 97.9 ??F (36.6 ??C) Heart Rate??(Peripheral) 85 Heart Rate??(Monitored) 84 Respiratory Rate?? 20 Blood Pressure?? 146/90?? Height?? 66.93 in (170 cm) Weight?? 140.46 lb (63.7 kg) BMI?? 22.04 Allergies No Known Medication Allergies What to Do Next Instructions from Your Care Team Do not eat or drink??anything after tonight until you hear from the radiology department tomorrow morning.?? They should be calling you to set up a gallbladder ultrasound. ??If you have not heard by 9 AM you can call [phone] to inquire on timing of gallbladder ultrasound.?You can come by the ER??to obtain??results of the ultrasound after the study is done. ??You may take some Tylenol as needed for discomfort.?? You may take the Zofran which is also called ondansetron as needed for nausea.?? You should hear from Dr. Rodríguez also about status of prostate issues. You Need to Schedule the Following Appointments Follow Up with??Homer Rodríguez MD When:??Within 1 week [facility] [address] [place] [phone] Upcoming Scheduled Appointments Friday 10:00 AM EDT ?? With: Homer Rod[facility]uez MD [facility] [address] [place] [phone] Status: Confirmed You were treated today on an emergency basis; it may be mullen to contact your primary care provider to notify them of your visit today. You may have been referred to your regular doctor or a specialist, please follow up as instructed. If your condition worsens or you can't get in to see the doctor, contact the Emergency Department. Medications What How Much When Why Instructions Next Dose New ondansetron (ondansetron 4 mg oral tablet, disintegrating) 1 tab Oral (given by mouth) 3 times a day as needed for nausea/vomiting Duration: 5 Days Pickup at [facility] Unchanged clobetasol topical (clobetasol 0.05% topical cream) 1 Application Topical (on the skin) 2 times a day Lesion of penis Duration: 30 Days apply sparingly to affected areas twice daily ?? Unchanged ibuprofen (ibuprofen 200 mg oral tablet) Oral (given by mouth) As needed for as needed for pain Unchanged latanoprost ophthalmic (latanoprost 0.005% ophthalmic solution) 1 Drops Both eyes Every night at bedtime Unchanged levoFLOXacin (levoFLOXacin 500 mg oral tablet) 1 tab Oral (given by mouth) Every 24 hours Prostatitis Duration: 14 Days Unchanged omeprazole (omeprazole 40 mg oral delayed release capsule) 1 Capsules Oral (given by mouth) Every day Unchanged sulfamethoxazole-trimethoprim (Bactrim DS 800 mg-160 mg oral tablet) 1 tab Oral (given by mouth) Every 12 hours Prostatitis Duration: 28 Days Unchanged tamsulosin (tamsulosin 0.4 mg oral capsule) 1 Capsules Oral (given by mouth) Every day Urinary retention Duration: 90 Days after a meal ?? Unchanged tamsulosin (tamsulosin 0.4 mg oral capsule) 1 Capsules Oral (given by mouth) Every day BPH with obstruction/lower urinary tract symptoms Duration: 90 Days Pharmacy Information [facility]: [address], [place] [phone] Education Materials Cholelithiasis Cholelithiasis happens when gallstones form in the gallbladder. The gallbladder stores bile. Bile is a fluid that helps digest fats. Bile can harden and form into gallstones. If they cause a blockage, they can cause pain (gallbladder attack). What are the causes? This condition may be caused by: ? Some blood diseases, such as sickle cell anemia. ? Too much of a fat-like substance (cholesterol) in your bile. ? Not enough bile salts in your bile. These salts help the body absorb and digest fats. ? The gallbladder not emptying fully or often enough. This is common in women. What increases the risk? The following factors may make you more likely to develop this condition: ? Being female. ? Being many times. ? Eating a lot of fried foods, fat, and refined carbs (refined carbohydrates). ? Being very overweight (obese). ? Being older than age 40. ? Using medicines with female hormones in them for a long time. ? Losing weight fast. ? Having gallstones in your family. ? Having some health problems, such as diabetes, Crohn's disease, or liver disease. What are the signs or symptoms? Often, there may be gallstones but no symptoms. These gallstones are called silent gallstones. If agallstone causes a blockage, you may get sudden pain. The pain: ? Can be in the upper right part of your belly (abdomen). ? Normally comes at night or after you eat. ? Can last an hour or more. ? Can spread to your right shoulder, back, or chest. ? Can feel like discomfort, burning, or fullness in the upper part of your belly (indigestion). If the blockage lasts more than a few hours, you can get an infection or swelling. You may: ? Feel like you may vomit. ? Vomit. ? Feel bloated. ? Have belly pain for 5 hours or more. ? Feel tender in your belly, often in the upper right part and under your ribs. ? Have fever or chills. ? Have skin or the white parts of your eyes turn yellow (jaundice). ? Have dark pee (urine) or pale poop (stool). How is this treated? Treatment for this condition depends on how bad you feel. If you have symptoms, you may need: ? Home care, if symptoms are not very bad. ? Do not eat for 12???24 hours. Drink only water and clear liquids. ? Start to eat simple or clear foods after 1 or 2 days. Try broths and crackers. ? You may need medicines for pain or stomach upset or both. ? If you have an infection, you will need antibiotics. ? A hospital stay, if you have very bad pain or a very bad infection. ? Surgery to remove your gallbladder. You may need this if: ? Gallstones keep coming back. ? You have very bad symptoms. ? Medicines to break up gallstones. Medicines: ? Are best for small gallstones. ? May be used for up to 6???12 months. ? A procedure to find and take out gallstones or to break up gallstones. Follow these instructions at home: Medicines ? Take jmex-[id number] and prescription medicines only as told by your doctor. ? If you were prescribed an antibiotic medicine, take it as told by your doctor. Do not stop taking the antibiotic even if you start to feel better. ? Ask your doctor if the medicine prescribed to you requires you to avoid driving or using machinery. Eating and drinking ? Drink enough fluid to keep your urine pale yellow. Drink water or clear fluids. This is important when you have pain. ? Eat healthy foods. Choose: ? Fewer fatty foods, such as fried foods. ? Fewer refined carbs. Avoid breads and grains that are highly processed, such as white bread and white rice. Choose whole grains, such as whole-wheat bread and brown rice. ? More fiber. Almonds, fresh fruit, and beans are healthy sources. General instructions ? Keep a healthy weight. ? Keep all follow-up visits as told by your doctor. This is important. Where to find more information ? [employer] [place] [employer]: www.niddk.nih.gov Contact a doctor if: ? You have sudden pain in the upper right part of your belly. Pain might spread to your right shoulder, back, or chest. ? You have been diagnosed with gallstones that have no symptoms and you get: ? Belly pain. ? Discomfort, burning, or fullness in the upper part of your abdomen. ? You have dark urine or pale stools. Get help right away if: ? You have sudden pain in the upper right part of your abdomen, and the pain lasts more than 2 hours. ? You have pain in your abdomen, and: ? It lasts more than 5 hours. ? It keeps getting worse. ? You have a fever or chills. ? You keep feeling like you may vomit. ? You keep vomiting. ? Your skin or the white parts of your eyes turn yellow. Summary ? Cholelithiasis happens when gallstones form in the gallbladder. ? This condition may be caused by a blood disease, too much of a fat-like substance in the bile, or not enough bile salts in bile. ? Treatment for this condition depends on how bad you feel. ? If you have symptoms, do not eat or drink. You may need medicines. You may need a hospital stay forvery bad pain or a very bad infection. ? You may need surgery if gallstones keep coming back or if you have very bad symptoms. This information is not intended to replace advice given to you by your health care provider. Make sure you discuss any questions you have with your health care provider. Document Revised: 01/05/2021 Document Reviewed: 10/09/2020 Elsevier Patient Education ?? 2022 [employer] Inc. Abdominal Pain, Adult Many things can cause belly (abdominal) pain. Most times, belly pain is not dangerous. Many cases of belly pain can be watched and treated at home. Sometimes, though, belly pain is serious. Your doctor will try to find the cause of your belly pain. Follow these instructions at home: Medicines ? Take jair-kgy-kpqsisj and prescription medicines only as told by your doctor. ? Do not take medicines that help you poop (laxatives) unless told by your doctor. General instructions ? Watch your belly pain for any changes. ? Drink enough fluid to keep your pee (urine) pale yellow. ? Keep all follow-up visits as told by your doctor. This is important. Contact a doctor if: ? Your belly pain changes or gets worse. ? You are not hungry, or you lose weight without trying. ? You are having trouble pooping (constipated) or have watery poop (diarrhea) for more than 2???3 days. ? You have pain when you pee or poop. ? Your belly pain wakes you up at night. ? Your pain gets worse with meals, after eating, or with certain foods. ? You are vomiting and cannot keep anything down. ? You have a fever. ? You have blood in your pee. Get help right away if: ? Your pain does not go away as soon as your doctor says it should. ? You cannot stop vomiting. ? Your pain is only in areas of your belly, such as the right side or the left lower part of the belly. ? You have bloody or black poop, or poop that looks like tar. ? You have very bad pain, cramping, or bloating in your belly. ? You have signs of not having enough fluid or water in your body (dehydration), such as: ? Dark pee, very little pee, or no pee. ? Cracked lips. ? Dry mouth. ? Sunken eyes. ? Sleepiness. ? Weakness. ? You have trouble breathing or chest pain. Summary ? Many cases of belly pain can be watched and treated at home. ? Watch your belly pain for any changes. ? Take akdb-pjd-scjxesz and prescription medicines only as told by your doctor. ? Contact a doctor if your belly pain changes or gets worse. ? Get help right away if you have very bad pain, cramping, or bloating in your belly. This information is not intended to replace advice given to you by your health care provider. Make sure you discuss any questions you have with your health care provider. Document Revised: 03/27/2020 Document Reviewed: 03/27/2020 [employer] Patient Education ?? 2022 [employer]. Tests Performed Medications and Immunizations Administered Given THP ondansetron 4 mg Dis Tab, 4 tab, Oral Toradol, 15 mg, IV Push Zofran, 4 mg, IV Push Lab Test Name Test Result Date/Time WBC 5.9 x10^3/mcL 12/07/2023 21:53 EST RBC 4.3 x10^6/mcL 12/07/2023 21:53 EST Hgb 14.3 g/dL 12/07/2023 21:53 EST Hct 42.0 % 12/07/2023 21:53 EST MCV 97.2 fL 12/07/2023 21:53 EST MCH 33.1 pg 12/07/2023 21:53 EST MCHC 34.0 g/dL 12/07/2023 21:53 EST RDW-CV 12.5 % 12/07/2023 21:53 EST Platelets 143 x10^3/mcL 12/07/2023 21:53 EST Neutro Auto 67.1 % 12/07/2023 21:53 EST Lymph Auto 25.7 % 12/07/2023 21:53 EST [place] Auto 6.3 % 12/07/2023 21:53 EST Eos, Auto 0.3 % 12/07/2023 21:53 EST Basophil Auto 0.3 % 12/07/2023 21:53 EST Imm Gran Auto 0.3 % 12/07/2023 21:53 EST Neutro Absolute 4.0 x10^3/mcL 12/07/2023 21:53 EST Slide Review Not Indicated 12/07/2023 21:53 EST Sodium Level 136 mmol/L 12/07/2023 21:53 EST Potassium Level 4.2 mmol/L 12/07/2023 21:53 EST Chloride Level 100 mmol/L 12/07/2023 21:53 EST CO2 28 mmol/L 12/07/2023 21:53 EST Alk Phos 127 unit/L 12/07/2023 21:53 EST AST 13 unit/L 12/07/2023 21:53 EST ALT 26 unit/L 12/07/2023 21:53 EST BUN 17 mg/dL 12/07/2023 21:53 EST Glucose Level 130 mg/dL 12/07/2023 21:53 EST Creatinine Level 1.38 mg/dL 12/07/2023 21:53 EST eGFR AA 53 12/07/2023 21:53 EST eGFR Non-AA 53 12/07/2023 21:53 EST Calcium Level 9.7 mg/dL 12/07/2023 21:53 EST Protein Total 7.9 g/dL 12/07/2023 21:53 EST Albumin Level 3.6 g/dL 12/07/2023 21:53 EST Bilirubin Total 1.4 mg/dL 12/07/2023 21:53 EST Lactic Acid Lvl 1.3 mmol/L 12/07/2023 21:53 EST Lipase Level 40 unit/L 12/07/2023 22:16 EST Troponin-I 5.1 pg/mL 12/07/2023 22:16 EST UA Color YELLOW. 12/07/2023 23:30 EST UA Appear Hazy- Clinitek 12/07/2023 23:30 EST UA Glucose NEGATIVE 12/07/2023 23:30 EST UA Bili 1+ 12/07/2023 23:30 EST UA Ketones TRACE. 12/07/2023 23:30 EST UA Spec Grav 1.025 12/07/2023 23:30 EST UA Blood 3+ 12/07/2023 23:30 EST UA pH 6.0 12/07/2023 23:30 EST UA Protein TRACE. 12/07/2023 23:30 EST UA Urobilinogen 0.2 Uro 12/07/2023 23:30 EST UA Nitrite NEGATIVE 12/07/2023 23:30 EST UA Leuk Est NEGATIVE 12/07/2023 23:30 EST UA Culture Ind?. Not Indicated 12/07/2023 23:30 EST UA WBC 0-3 12/07/2023 23:30 EST UA RBC 25-50 12/07/2023 23:30 EST UA Squam Epithelial None Seen 12/07/2023 23:30 EST UA Mucous None Seen 12/07/2023 23:30 EST UA Bacteria Rare 12/07/2023 23:30 EST Patient/Policy Service Coordinator Signature Patient Name:DEJA HAYES I have received this information and my questions have been answered. Patient/Policy Service Coordinator Name: Patient/Policy Service Coordinator Signature: Relationship to Patient: Witness Name/Signature: Date: Electronically Signed on: 12/08/2023 01:03 ESTSigned by:DULCE Emergency department Note * Jessi Reyes: PERFORM Event Display: ED Notes Authored Date: * Jessi Reyes: PERFORM Event Display: ED Notes Authored Date: Patient Care team information Care Team Personnel Name: Aurelia Venegas MD Position: Physician Member Role: Informed Provider Address: Address: [address] Name: Efe Altamirano MD Position: Physician Member Role: Admitting Physician Address: Address: [address] [place] [id number] Name: Marcial Samuels RN Position: Nurse Member Role: ED Nurse Care Team Related Persons Name: RILEY HAYES Address: Home [address] [place] [address], [phone]
--- OUTSIDE RECORDS SUMMARY | 2024-05-18 09:19 | XMS_ITS | Continuity of Care Document ---
Author Name Unknown Organization [facility] Address [address] [place] [address] Care Team Providers Care Tray Casting Machine Operator Name Role Phone Aurelia Venegas Primary Care Physician [phone] Encounter [facility] Date(s): 02/13/24 - 02/13/[address] [address] Discharge Disposition: Home or Self Care Attending Physician: Mick Brenner MD Admitting Physician: Mick Brenner MD Referring Physician: Mick Brenner MD Allergies, Adverse Reactions, Alerts No Known Medication Allergies Assessment and Plan Future Appointments Diagnostic Tests Pending * PSA Ultrasensitive, S MIRZA 02/13/24 Future Scheduled Tests Laboratory* PSA Diagnostic 08/02/24 [...] Recorded tetanus/diphth/pertuss (Tdap) adult/adol 04/03/11 Recorded Novel [id number]-[id number], all formulation 12/29/09 Recorded Novel Fvsgvdkwq-R2J1-50, all formulation 1 12/29/09 Recorded tetanus-diphth toxoids (Td) adult/adol 12/01/04 Re corded Not Given Vaccine Date Status Refusal Reason Td(adult) unspecified formulation 2 05/10/22 Not G isrealen Patient Refuses 1Result Comment: Duplicated 2Result Comment: Patient Declined Last Modified on 09-13-2021 Medications bicalutamide 50 mg oral tablet 50 mg = 1 tab, Oral, every 24 hr, # 30 tab, 1 Refill(s), Pharmacy: [facility] #58, 170, cm, 12/11/23 8:34:00 EST, Height, 66.85, kg, 12/23/23 10:14:00 EST, Weight Dosing Start Date: 12/25/23 Stop Date: 02/23/24 Status: Ordered clobetasol 0.05% topical cream 1 graeme, Topical, BID, apply sparingly to affected areas twice daily, # 15 g, 3 Refill(s), Pharmacy: [facility] #58, 167, cm, 04/23/22 13:16:00 EDT, Height/Length [...] Daily, # 90 cap, 3 Refill(s), Pharmacy: [facility] #58, 167, cm, 04/23/22 13:16:00 EDT, Height/Length Dosing, 68, kg, 04/23/22 13:16:00 EDT, Weight Dosing Start Date: 03/18/23 Status: Ordered tamsulosin 0.4 mg oral capsule 0.4 mg = 1 cap, Oral, Daily, after a meal, # 90 cap, 3 Refill(s), Pharmacy: [facility] #58, 167, cm, 04/23/22 13:16:00 EDT, Height/Length Dosing, 68, kg, 04/23/22 13:16:00 EDT, Weight Dosing Start Date: 04/24/22 Stop Date: 04/19/23 Status: Ordered tamsulosin 0.4 mg oral capsule 0.4 mg = 1 cap, Oral, Daily, # 90 cap, 3 Refill(s), Pharmacy: [facility] #58, 167, cm, 04/23/22 13:16:00 EDT, Height/Length [...] x4 12/24/16 Results Laboratory List Name Date CBC w/ Diff 02/13/24 Comprehensive Metabolic Panel 02/13/24 Testosterone [facility] 02/13/24 Automated Diff 02/13/24 Most recent to oldest [Reference Range]: 1 WBC [5.0-10.0 x10^3/mcL] 4.2 x10^3/mcL *LOW* (02/13/24 11:55 AM) RBC [4.6-6.0 x10^6/mcL] 3.7 x10^6/mcL *LOW* (02/13/24 11:55 AM) Neutro Auto [40.0-75.0 %] 53.6 % (02/13/24: AM) Lymph Auto [20.0-50.0 %] 36.6 % (02/13/24: AM) [place] Auto [2.0-15.0 %] 7.4 % (02/13/24: AM) Basophil Auto [0.0-1.0 %] 0.5 % (02/13/24: AM) BUN [7-18 mg/dL] 20 mg/dL *HI* (02/13/24: AM) Glucose Level [74-106 mg/dL] 85 mg/dL (02/13/24: AM) Potassium Level [3.5-5.1 mmol/L] 4.0 mmo l/L (02/13/24:55 AM) MCV [80.0-96.0 fL] 96.8 fL *HI* (02/13/24: AM) AST [15-37 unit/L] 11 unit/L *LOW* (02/13/24: AM) ALT [16-63 unit/L] 17 unit/L (02/13/24: AM) MCHC [31.0-35.0 g/dL] 33.7 g/dL (02/13/24: AM) Sodium Level [136-145 mmol/L] 140 mmol/L (02/13/24 11:55 AM) Hct [41.0-51.0 %] 36.2 % *LOW* (02/13/24 AM) Calcium Level [8.5-10.1 mg/dL] 9.7 mg/dL (02/13/24 11:55 AM) Albumin Level [3.4-5.0 g/dL] 3.6 g/dL (02/13/24 11: AM) Protein Total [6.4-8.2 g/dL] 7.4 g/dL (02/13/24 11:55 AM) MCH [26.0-32.0 pg] 32.6 pg *HI* (02/13/24 AM) Neutro Absolute 2.2 x10^3/mcL *NA* (02/13/24: AM) Bilirubin Total [0.2-1.0 mg/dL] 0.9 mg/d L (02/13/24: AM) Hgb [14.0-18.0 g/dL] 12.2 g/dL *LOW* (02/13/24: AM) Alk Phos [46-146 unit/L] 104 unit/L (02/13/24: AM) Platelets [130-450 x10^3/mcL] 129 x10^3/ mcL *LOW* (02/13/24: AM) CO2 [21-32 mmol/L] 30 mmol/L (02/13/24: AM) eGFR Non-AA [>=60] 64 (02/13/24:55 AM) eGFR AA [>=60] 64 (02/13/24 11:55 AM) Chloride Level [98-107 mmol/L] 104 mmol/ L (02/13/24: AM) RDW-CV [11.5-14.5 %] 13.7 % (02/13/24: AM) Imm Gran Auto [0.0-0.9 %] 0.5 % (02/13/24: AM) Creatinine Level [0.70-1.30 mg/dL] 1.18 mg/dL (02/13/24:55 AM) Testosterone [facility] [229-902 ng/dL] <7 ng/d L 1 *LOW* (02/13/24: AM) Eos, Auto [1.0-6.0 %] 1.4 % (02/13/24 11:55 AM) 1Result Comment: The results of this assay can be falsely elevated due to the consumption of Biotin. Test performed [place] [address] Social History Social History Type Response Tobacco Former tobacco user Tobacco Use:. Quit over 50 years ago per day. Sex Male Patient Care team information Care Team Personnel Name: Aurelia Venegas MD Position: Physician Member Role: Informed Provider Address: Address: [address] [place] [address] [place] [address]- Care Team Related Persons Name: HAYES RILEY Address: Home [address] [place] [address], [phone]
--- OUTSIDE RECORDS SUMMARY | 2024-05-18 09:19 | XMS_ITS | Continuity of Care Document ---
Author Name Unknown Organization [facility] Address [address] [place] [address] Care Team Providers Care Freight Rate Clerk Name Role Phone Aurelia Venegas Primary Care Physician Encounter [facility] Date(s): 08/08/23 - 08/08/[address] [address] Discharge Disposition: Home or Self Care Attending [...] Recorded tetanus/diphth/pertuss (Tdap) adult/adol 04/03/11 Recorded Novel [id number]-[id number], all formulation 12/29/09 Recorded Novel Lkvbzvgvz-L6P7-22, all formulation 1 12/29/09 Recorded tetanus-diphth toxoids (Td) adult/adol 12/01/04 Re corded Not Given Vaccine Date Status Refusal Reason Td(adult) unspecified formulation 2 05/10/22 Not G iven Patient Refuses 1Result Comment: Duplicated 2Result Comment: Patient Declined Last Modified on 09-13-2021 Medications clobetasol 0.05% topical cream 1 graeme, Topical, BID, apply sparingly to affected areas twice daily, # 15 g, 3 Refill(s), Pharmacy: [facility] #58, 167, cm, 04/23/22 13:16:00 EDT, Height/Length [...] Daily, # 90 cap, 3 Refill(s), Pharmacy: [facility] #58, 167, cm, 04/23/22 13:16:00 EDT, Height/Length Dosing, 68, kg, 04/23/22 13:16:00 EDT, Weight Dosing Start Date: 03/18/23 Status: Ordered tamsulosin 0.4 mg oral capsule 0.4 mg = 1 cap, Oral, Daily, after a meal, # 90 cap, 3 Refill(s), Pharmacy: [facility] #58, 167, cm, 04/23/22 13:16:00 EDT, Height/Length Dosing, 68, kg, 04/23/22 13:16:00 EDT, Weight Dosing Start Date: 04/24/22 Stop Date: 04/19/23 Status: Ordered tamsulosin 0.4 mg oral capsule 0.4 mg = 1 cap, Oral, Daily, # 90 cap, 3 Refill(s), Pharmacy: [facility] #58, 167, cm, 04/23/22 13:16:00 EDT, Height/Length [...] Results Laboratory List Name Date PSA Diagnostic 08/08/23 Most recent to oldest [Reference Range]: 1 PSA Total Diagnostic [0.00-4.00 ng/mL] 2 7.57 ng/mL 1 *HI* (08/08/23 11:45 AM) 1Interpretive Data: The testing method is an heterogeneous enzyme Immunoassay manufactured by [employer] and performed on the [employer] system. Values obtained with different assay methods [...] Physician Member Role: Informed Provider Address: Address: [place], [place] [address] Care Team Related Persons Name: RILEY HAYES
--- OUTSIDE RECORDS SUMMARY | 2024-05-18 09:19 | XMS_ITS | Continuity of Care Document ---
Author Name Unknown Organization [facility] Address [address] [place] [address] Care Team Providers Care Corporation Officer Name Role Phone Aurelia Venegas Primary Care Physician [phone] Encounter [facility] Date(s): 10/27/23 - 10/27/[address] [phone] Encounter Diagnosis Elevated PSA(Discharge Diagnosis) - 10/27/23 Discharge Disposition: Home or Self Care Attending [...] Recorded tetanus/diphth/pertuss (Tdap) adult/adol 04/03/11 Recorded Novel Yyohdyolp-[id number], all formulation 12/29/09 Recorded Novel Dckfpwphs-Z4Y1-97, all formulation 1 12/29/09 Recorded tetanus-diphth toxoids (Td) adult/adol 12/01/04 Re corded Not Given Vaccine Date Status Refusal Reason Td(adult) unspecified formulation 2 05/10/22 Not G isrealen Patient Refuses 1Result Comment: Duplicated 2Result Comment: Patient Declined Last Modified on 09-13-2021 Medications Bactrim DS 800 mg-160 mg oral tablet 1 tab, Oral, every 12 hr, # 56 tab, 0 Refill(s), Pharmacy: [facility] #58, 167, cm, 04/23/22 13:16:00 EDT, Height/Length Dosing, 68, kg, 04/23/22 13:16:00 EDT, Weight Dosing Start Date: 08/10/23 Stop Date: 09/07/23 Status: Ordered clobetasol 0.05% topical cream 1 graeme, Topical, BID, apply sparingly to affected areas twice daily, # 15 g, 3 Refill(s), Pharmacy: [facility] #58, 167, cm, 04/23/22 13:16:00 EDT, Height/Length [...] hr, # 14 tab, 0 Refill(s), Pharmacy: [facility] #58, 167, cm, 04/23/22 13:16:00 EDT, Height/Length Dosing, 68, kg, 04/23/22 13:16:00 EDT, Weight Dosing Start Date: 09/12/23 Stop Date: 09/26/23 Status: Ordered omeprazole 40 mg oral delayed release capsule 1 cap, Oral, Daily, # 90 cap, 3 Refill(s), Pharmacy: [facility] #58, 167, cm, 04/23/22 13:16:00 EDT, Height/Length Dosing, 68, kg, 04/23/22 13:16:00 EDT, Weight Dosing Start Date: 03/18/23 Status: Ordered tamsulosin 0.4 mg oral capsule 0.4 mg = 1 cap, Oral, Daily, after a meal, # 90 cap, 3 Refill(s), Pharmacy: [facility] #58, 167, cm, 04/23/22 13:16:00 EDT, Height/Length Dosing, 68, kg, 04/23/22 13:16:00 EDT, Weight Dosing Start Date: 04/24/22 Stop Date: 04/19/23 Status: Ordered tamsulosin 0.4 mg oral capsule 0.4 mg = 1 cap, Oral, Daily, # 90 cap, 3 Refill(s), Pharmacy: [facility] #58, 167, cm, 04/23/22 13:16:00 EDT, Height/Length [...] Physician Member Role: Informed Provider Address: Address: [place] [address]- [place] Care Team Related Persons Name: RILEY HAYES Address: Home [address] [place] [address], [phone]
[2024-05-21 12:37] LABS: Testosterone, Total <7.0 ng/dL (240-950)
== END 2024-05-17 09:18 | disposition home or self-care (01) ==
LOC: LBO 05-18 09:17
PROVIDERS: Visit Provider Internal Medicine
DX: C61 Malignant neoplasm of prostate (principal)
CPT/HCPCS: 36415; 80053; 84153; 84403; 85025

== ENCOUNTER 2024-06-07 03:20 | Outpatient (CLI) | payer MEDICARE, OTHER, SELFPAY ==
[2024-06-07 13:10] LABS: Abs Immature Grans 0.02 10^3/uL (0.0-0.06); Absolute Basophil Count 0.02 10^3/uL (0.0-0.2); Absolute Eosinophil Count 0.04 10^3/uL (0.0-0.7); Absolute Lymphocyte Count 1.43 10^3/uL (1.2-3.4); Absolute Monocyte Count 0.14 10^3/uL (0.1-0.8); Absolute Neutrophil Count 2.02 10^3/uL (1.2-6.7); Basophils % 0.5 %; Eosinophils % 1.1 %; HCT 33.5 % (40.0-50.0); HGB 10.7 g/dL (13.5-17.5); Immature Grans % 0.5 %; MCH 31.8 pg (27.0-33.0); MCHC 31.9 % (32.0-36.0); MCV 100 fL (80-95); MPV 8.2 fL (8.0-11.0); Monocytes % 3.8 %; Neutrophils % 55.1 %; Platelet Count 126 10^3/uL (130-400); RBC 3.36 10^6/uL (4.36-5.78); RDW 14.6 % (11.8-14.1); RDW-SD 53.2 fL; WBC 3.67 10^3/uL (4.4-10.8)
[2024-06-07 13:21] LABS: Diff Comment Agrees w/ Instrument; RBC Morphology Normal
[2024-06-07 13:23] LABS: ALT 20 U/L (16-63); AST 14 U/L (15-37); Albumin 3.3 g/dL (3.4-5.0); Alkaline Phosphatase 107 U/L (46-116); Anion Gap 7.6 mmol/L (3-11); BUN 13 mg/dL (7-18); Bilirubin, Total 0.49 mg/dL (0.2-1.0); CO2 28.4 mmol/L (21.0-32.0); CREATININE 1.2 mg/dL (0.70-1.30); Calcium 9.4 mg/dL (8.5-10.1); Chloride 103 mmol/L (98-107); Estimated GFR 62.67 (mL/min/1.73m2); Glucose 117 mg/dL (74-106); Potassium 4.2 mmol/L (3.5-5.1); Sodium 139 mmol/L (136-145); Total Protein 7.3 g/dL (6.4-8.2)
[2024-06-12 07:31] LABS: Testosterone, Total <7.0 ng/dL (240-950)
[2024-06-16 15:46] LABS: PSA, Ultrasensitive 0.07 ng/mL (<= 6.5)
== END 2024-06-07 03:21 | disposition home or self-care (01) ==
LOC: LBO 03:20
PROVIDERS: Visit Provider Internal Medicine
DX: C61 Malignant neoplasm of prostate (principal)
CPT/HCPCS: 36415; 80053; 84153; 84403; 85025

== ENCOUNTER 2024-08-31 12:16 | Outpatient (CLI) | payer MEDICARE, OTHER, SELFPAY ==
[2024-08-31 11:08] LABS: Abs Immature Grans 0.02 10^3/uL (0.0-0.06); Absolute Basophil Count 0.01 10^3/uL (0.0-0.2); Absolute Eosinophil Count 0.08 10^3/uL (0.0-0.7); Absolute Monocyte Count 0.37 10^3/uL (0.1-0.8); Absolute Neutrophil Count 1.73 10^3/uL (1.2-6.7); Basophils % 0.2 %; HCT 36.6 % (40.0-50.0); HGB 12.1 g/dL (13.5-17.5); Immature Grans % 0.5 %; Lymphocytes % 44.9 %; MCHC 33.1 % (32.0-36.0); MCV 100 fL (80-95); MPV 8.4 fL (8.0-11.0); Monocytes % 9.2 %; Neutrophils % 43.2 %; Platelet Count 101 10^3/uL (130-400); RBC 3.67 10^6/uL (4.36-5.78); RDW 13.4 % (11.8-14.1); RDW-SD 49.5 fL; WBC 4.01 10^3/uL (4.4-10.8)
[2024-08-31 11:27] LABS: ALT 24 U/L (16-63); AST 17 U/L (15-37); Albumin 3.5 g/dL (3.4-5.0); Alkaline Phosphatase 96 U/L (46-116); Anion Gap 8.8 mmol/L (3-11); BUN 19 mg/dL (7-18); Bilirubin, Total 0.52 mg/dL (0.2-1.0); CO2 28.2 mmol/L (21.0-32.0); CREATININE 1.4 mg/dL (0.70-1.30); Calcium 9.8 mg/dL (8.5-10.1); Chloride 100 mmol/L (98-107); Estimated GFR 51.77 (mL/min/1.73m2); Glucose 85 mg/dL (74-106); Potassium 3.8 mmol/L (3.5-5.1); Sodium 137 mmol/L (136-145); Total Protein 7.4 g/dL (6.4-8.2)
[2024-09-02 10:06] LABS: PSA, Ultrasensitive 0.02 ng/mL (<= 6.5)
[2024-09-03 11:34] LABS: Testosterone, Total 7.7 ng/dL (240-950)
== END 2024-08-31 12:17 | disposition home or self-care (01) ==
LOC: LBO 12:17
PROVIDERS: Visit Provider Internal Medicine
DX: C61 Malignant neoplasm of prostate (principal)
CPT/HCPCS: 36415; 80053; 84153; 84403; 85025

== ENCOUNTER 2024-12-03 01:33 | Outpatient (CLI) | payer MEDICARE, OTHER, SELFPAY ==
[2024-12-03 10:06] LABS: Abs Immature Grans 0.02 10^3/uL (0.0-0.06); HCT 36.2 % (40.0-50.0); HGB 12.3 g/dL (13.5-17.5); MCH 33.3 pg (27.0-33.0); MCV 98 fL (80-95); MPV 8.7 fL (8.0-11.0); Platelet Count 107 10^3/uL (130-400); RBC 3.69 10^6/uL (4.36-5.78); RDW 13.8 % (11.8-14.1); RDW-SD 49.3 fL; WBC 4.31 10^3/uL (4.4-10.8)
[2024-12-03 10:26] LABS: ALT 57 U/L (16-63); AST 31 U/L (15-37); Absolute Eosinophil Count 0.09 10^3/uL (0.0-0.7); Absolute Lymphocyte Count 1.94 10^3/uL (1.2-3.4); Absolute Monocyte Count 0.22 10^3/uL (0.1-0.8); Absolute Neutrophil Count 2.07 10^3/uL (1.2-6.7); Albumin 3.8 g/dL (3.4-5.0); Alkaline Phosphatase 100 U/L (46-116); Anion Gap 6.8 mmol/L (3-11); BUN 21 mg/dL (7-18); Bands % 1 %; Bilirubin, Total 0.65 mg/dL (0.2-1.0); CO2 29.2 mmol/L (21.0-32.0); CREATININE 1.3 mg/dL (0.70-1.30); Chloride 106 mmol/L (98-107); Estimated GFR 56.58 (mL/min/1.73m2); Glucose 103 mg/dL (74-106); Potassium 4.4 mmol/L (3.5-5.1); Sodium 142 mmol/L (136-145); Total Protein 7.6 g/dL (6.4-8.2)
[2024-12-03 10:27] LABS: Diff Comment Manual Differential; RBC Morphology Normal
[2024-12-06 12:25] LABS: PSA, Ultrasensitive <0.01 ng/mL (<= 6.5)
== END 2024-12-03 01:34 | disposition home or self-care (01) ==
LOC: LBO 01:33
PROVIDERS: Visit Provider Internal Medicine
DX: C61 Malignant neoplasm of prostate (principal); C77.2 Secondary and unspecified malignant neoplasm of intra-abdominal lymph nodes
CPT/HCPCS: 36415; 80053; 84153; 84403; 85025

== ENCOUNTER 2025-03-04 01:08 | Outpatient (CLI) | payer MEDICARE, OTHER, SELFPAY ==
[2025-03-04 09:02] LABS: HCT 36.3 % (40.0-50.0); HGB 12.3 g/dL (13.5-17.5); MCH 33.4 pg (27.0-33.0); MCHC 33.9 % (32.0-36.0); MCV 99 fL (80-95); MPV 8.8 fL (8.0-11.0); Platelet Count 122 10^3/uL (130-400); RBC 3.68 10^6/uL (4.36-5.78); RDW 13.4 % (11.8-14.1); WBC 4.12 10^3/uL (4.4-10.8)
[2025-03-04 09:15] LABS: ALT 25 U/L (16-63); AST 16 U/L (15-37); Albumin 3.7 g/dL (3.4-5.0); Alkaline Phosphatase 89 U/L (46-116); Anion Gap 7.5 mmol/L (3-11); BUN 20 mg/dL (7-18); Bilirubin, Total 0.7 mg/dL (0.2-1.0); CO2 28.5 mmol/L (21.0-32.0); CREATININE 1.3 mg/dL (0.70-1.30); Calcium 9.7 mg/dL (8.5-10.1); Chloride 107 mmol/L (98-107); Estimated GFR 56.58 (mL/min/1.73m2); Glucose 99 mg/dL (74-106); Potassium 4.3 mmol/L (3.5-5.1); Sodium 143 mmol/L (136-145); Total Protein 7.3 g/dL (6.4-8.2)
[2025-03-04 09:42] LABS: Absolute Eosinophil Count 0.21 10^3/uL (0.0-0.7); Absolute Monocyte Count 0.29 10^3/uL (0.1-0.8); Absolute Neutrophil Count 1.52 10^3/uL (1.2-6.7); Atypical Lymphocytes % 0 %; Bands % 0 %; Diff Comment Manual Differential; RBC Morphology Normal
[2025-03-07 15:54] LABS: PSA, Ultrasensitive <0.01 ng/mL (<= 6.5)
[2025-03-08 15:06] LABS: Testosterone, Total <7.0 ng/dL (240-950)
== END 2025-03-04 01:09 | disposition home or self-care (01) ==
LOC: LBO 01:08
PROVIDERS: Visit Provider Internal Medicine
DX: C61 Malignant neoplasm of prostate (principal); C77.2 Secondary and unspecified malignant neoplasm of intra-abdominal lymph nodes
CPT/HCPCS: 36415; 80053; 84153; 84403; 85025

== ENCOUNTER 2025-05-31 12:57 | Outpatient (CLI) | payer MEDICARE, OTHER, SELFPAY ==
[2025-05-31 11:12] LABS: Abs Immature Grans 0.02 10^3/uL (0.0-0.06); HCT 35.6 % (40.0-50.0); HGB 12.1 g/dL (13.5-17.5); Immature Grans % 0.5 %; MCH 33.2 pg (27.0-33.0); MCHC 34.0 % (32.0-36.0); MCV 98 fL (80-95); MPV 8.9 fL (8.0-11.0); Platelet Count 112 10^3/uL (130-400); RBC 3.65 10^6/uL (4.36-5.78); RDW 13.2 % (11.8-14.1); RDW-SD 47.8 fL; WBC 4.12 10^3/uL (4.4-10.8)
[2025-05-31 11:18] LABS: ALT 26 U/L (16-63); AST 19 U/L (15-37); Albumin 3.9 g/dL (3.4-5.0); Alkaline Phosphatase 98 U/L (46-116); Anion Gap 9.9 mmol/L (3-11); BUN 20 mg/dL (7-18); Bilirubin, Total 0.9 mg/dL (0.2-1.0); CO2 29.1 mmol/L (21.0-32.0); Calcium 9.7 mg/dL (8.5-10.1); Chloride 104 mmol/L (98-107); Estimated GFR 62.29 (mL/min/1.73m2); Glucose 111 mg/dL (74-106); Potassium 4.4 mmol/L (3.5-5.1); Sodium 143 mmol/L (136-145); Total Protein 7.5 g/dL (6.4-8.2)
[2025-05-31 12:12] LABS: RBC Morphology Normal
== END 2025-05-31 12:58 | disposition home or self-care (01) ==
LOC: LBO 12:57
PROVIDERS: Visit Provider Internal Medicine
DX: C61 Malignant neoplasm of prostate (principal); C77.2 Secondary and unspecified malignant neoplasm of intra-abdominal lymph nodes
CPT/HCPCS: 36415; 80053; 84153; 84403; 85025